=== PATIENT | male | born 1940 | race American Indian/Alaskan Native ===

== ENCOUNTER 2019-08-21 05:51 | Inpatient (IN) | payer MEDICARE ==
[2019-08-21] MEDS ORDERED: SODIUM CHLORIDE 0.9% 1000 ML 1,000 ML ONE (06:45)
[2019-08-21] MEDS ORDERED: SODIUM CHLORIDE 0.9% 1000 ML 1,000 ML IV ONE (06:47)
--- NOTE | 2019-08-21 07:08 | Emergency Department Report ---
HPI - General Chief Complaint: GI Bleed Time Seen by Provider: 08/21/19 06:07 - HPI HPI: 79-year-old -L[place] male presents to the emergency department with complaint of rectal bleeding that started last night around 8:30 PM. He had some spasmodic abdominal discomfort around 3 AM this morning. Currently he denies any abdominal pain, rectal pain, nausea, vomiting. Patient says that he feels warm but denies any known fever. He has not taken anything for her symptoms prior to presentation. This has never happened previously. He has a past medical history of hypertension, coronary artery disease with MO and is on anticoagulation, warfarin. His primary care physician is Dr. Angelica Lyons and his food preparation kitchen aide is Dr Landry. No recent travel or sick contacts at home. He is not a tobacco smoker. ED Past Medical Hx - Past Medical History Previous Medical History?: Yes Hx Hypertension: Yes Hx Heart Attack/AMI: Yes (2007) Hx Congestive Heart Failure: No Hx Diabetes: No Hx Deep Vein Thrombosis: No Hx Pulmonary Embolism: No Hx Liver Disease: No Hx Renal Disease: No Hx Sickle Cell Disease: No Hx Arthritis: No Hx Headaches / Migraines: No Hx Seizures: No Hx Kidney Stones: No Hx Asthma: No Hx COPD: No Hx Tuberculosis: No Hx Dementia: No Hx HIV: No Additional medical history: prostate CA - Surgical History Past Surgical History?: Yes Hx Coronary Stent: Yes (stents x3 in 2007) Hx Open Heart Surgery: No Hx Pacemaker: No Hx Internal Defibrillator: No Hx Cholecystectomy: No Hx Appendectomy: No Hx Breast Surgery: No Additional Surgical History: stentx3, prostate surgery - Social History Smoking Status: Never Smoker Substance Use Type: None - Medications Home Medications: Home Medications Medication Instructions Recorded Confirmed Last Taken Type Warfarin [Coumadin] 5 mg PO QDAY 05/09/17 08/21/19 08/19/19 History Warfarin [Coumadin] 10 mg PO QDAY 05/09/17 08/21/19 08/20/19 History Aspirin 81 mg PO DAILY #30 tab.chew 05/11/17 08/21/19 08/20/19 Rx AtorvaSTATin [Lipitor] 80 mg PO QHS #30 tablet 05/11/17 08/21/19 08/20/19 Rx Clopidogrel [Plavix] 75 mg PO QDAY #30 tablet 05/11/17 08/21/19 08/20/19 Rx Famotidine [Pepcid] 20 mg PO QDAY #30 tablet 05/11/17 08/21/19 08/13/19 Rx Lisinopril/Hydrochlorothiazide 1 each PO QDAY 08/21/19 08/21/19 08/20/19 History [Zestoretic 10-12.5 mg Tablet] Metoprolol [Lopressor] 25 mg PO QDAY 08/21/19 08/21/19 08/20/19 History ED Review of Systems ROS: Stated complaint: NAUSEA Other details as noted in HPI Comment: All other systems reviewed and negative Constitutional: denies: chills, fever Eyes: denies: eye pain, vision change ENT: denies: ear pain, throat pain Respiratory: denies: cough, shortness of breath Cardiovascular: denies: chest pain, palpitations Gastrointestinal: abdominal pain, other (rectal bleeding). denies: vomiting, melena Genitourinary: denies: dysuria, discharge Musculoskeletal: denies: back pain, arthralgia Skin: denies: rash, lesions Neurological: denies: headache, numbness Physical Exam - Physical Exam Vital Signs: Vital Signs 08/21/19 06:14 Temperature 98.5 F Pulse Rate 66 Respiratory 21 Rate Blood Pressure 127/64 Blood Pressure 127/64 [Left] O2 Sat by Pulse 100 Oximetry Physical Exam: GENERAL: The patient is well-developed well-nourished. HENT: Normocephalic. Atraumatic. Patient has moist mucous membranes. EYES: Extraocular motions are intact. NECK: Supple. Trachea is midline. CHEST/LUNGS: Clear to auscultation. There is no respiratory distress noted. HEART/CARDIOVASCULAR: Regular. There is no tachycardia. There is no murmur. ABDOMEN: Abdomen is soft, nontender. Patient has normal bowel sounds. There is no abdominal distention. SKIN: Skin is warm and dry. NEURO: The patient is awake, alert, and oriented. The patient is cooperative. The patient has no focal neurologic deficits. Normal speech. MUSCULOSKELETAL: There is no tenderness or deformity. There is no limitation range of motion. There is no evidence of acute injury. RECTAL: A small amount of gross red blood was seen. No obvious hemorrhoids or lesions. ED Course Vital Signs 08/21/19 06:14 Temperature 98.5 F Pulse Rate 66 Respiratory 21 Rate Blood Pressure 127/64 Blood Pressure 127/64 [Left] O2 Sat by Pulse 100 Oximetry - Consultations Consultation #1: I spoke with the PA for [facility], Deborah, regarding the patient's GI bleeding while on Coumadin. They came and saw the patient in the emergency department and plan to do a colonoscopy tomorrow and prep him today. 08/21/19 12:32 ED Medical Decision Making - Lab Data Result diagrams: 08/21/19 07:04 08/21/19 07:04 - EKG Data -: EKG Interpreted by Me EKG shows normal: sinus rhythm, axis, intervals (prolonged PA interval), QRS complexes (q waves to inferior leads), ST-T waves Rate: normal - EKG Data Interpretation: other (sinus, prolonged PA interval, inferior q waves) - Medical Decision Making Patient presents with new onset GI bleed since last night while on Coumadin a nticoagulation. Patient had some transient episodes of feeling hot, dizzy and some borderline hypotension but he responded to IV fluid resuscitation. Hemoglobin was at about 11.5. The INR is at 2.8 and therapeutic. Rest of labs are mostly unremarkable. Patient seen by GI and they have been consult at and will most likely do a colonoscopy tomorrow. Patient accepted for admission by the hospitalist, Dr. Marc. - Differential Diagnosis hemorrhoids, diverticulosis, malignancy Critical Care Time: No Critical care attestation.: If time is entered above; I have spent that time in minutes in the direct care of this critically ill patient, excluding procedure time. ED Disposition Clinical Impression: Chronic anticoagulation GI bleed Qualifiers: GI bleed type/associated pathology: unspecified gastrointestinal hemorrhage t ype Qualified Code(s): K92.2 - Gastrointestinal hemorrhage, unspecified Disposition: OP ADMIT IP TO THIS HOSP Is pt being admited?: Yes Condition: Fair Time of Disposition: 12:33
[2019-08-21 07:48] LABS: Alanine Aminotransferase 17 units/L (7-56); Albumin 3.6 g/dL (3.9-5); BUN/Creatinine Ratio 30; Blood Urea Nitrogen 33 mg/dL (9-20); Calcium 8.2 mg/dL (8.4-10.2); Hemolysis Index 21
[2019-08-21 07:49] LABS: Basophils % (Auto) 0.4 % (0.0-1.8); Eosinophils % (Auto) 0.3 % (0.0-4.3); Hematocrit 36.2 % (35.5-45.6); Hemoglobin 11.4 gm/dl (11.8-15.2); Lymphocytes # (Auto) 0.8 K/mm3 (1.2-5.4); Lymphocytes % (Auto) 10.1 % (13.4-35.0); Mean Corpuscular HGB Conc 31 % (32-34); Mean Corpuscular Volume 78 fl (84-94); Monocytes # (Auto) 0.3 K/mm3 (0.0-0.8); Monocytes % (Auto) 4.1 % (0.0-7.3); Platelet Count 152 K/mm3 (140-440); Red Blood Count 4.67 M/mm3 (3.65-5.03); Red Cell Distribution Width 16.5 % (13.2-15.2)
[2019-08-21 08:00] LABS: INR 2.8 (0.87-1.13)
[2019-08-21 08:01] LABS: Partial Thromboplastin Time 31.4 Sec. (24.2-36.6)
--- NOTE | 2019-08-21 12:38 | Gastroenterology Consultation ---
<ALDO HWANG - Last Filed: 08/21/19 12:40> History of Present Illness - Reason for Consult Consult date: 08/21/19 GI bleed Requesting physician: ALEJANDRO CHEATHAM - History of Present Illness Patient is a 79 y/o male with PMH of HTN, CAD (s/p coronary stents), and prostate CA (s/p surgery) who presented to ED with c/o rectal bleeding to which GI has been consulted. This afternoon patient was resting on stretcher in ED w/o acute distress. He reports an acute onset of rectal bleeding with bright red blood overnight that has continued this am. Last episode a couple of hours ago with bleeding now improving. Admits to mild abd cramping but no significant abd pain. Denies fever, CP, SOB, N/v, hematemesis, melena, diarrhea, or constipation. No prior hx of GI bleeding, PUD, or liver disease. Last colonoscopy over 10yrs ago. No Fhx of GI cancers. Currently on Coumadin at home (last dose yesterday). Past History Past Medical History: CAD, hypertension, other (prostate CA) Past Surgical History: Other (coronary stents; prostate surgery) Social history: denies: smoking, alcohol abuse Medications and Allergies Allergies Allergy/AdvReac Type Severity Reaction Status Date / Time No Known Allergies Allergy Verified 05/09/17 04:07 Home Medications Medication Instructions Recorded Confirmed Last Taken Type Warfarin [Coumadin] 5 mg PO QDAY 05/09/17 08/21/19 08/19/19 History Warfarin [Coumadin] 10 mg PO QDAY 05/09/17 08/21/19 08/20/19 History Aspirin 81 mg PO DAILY #30 tab.chew 05/11/17 08/21/19 08/20/19 Rx AtorvaSTATin [Lipitor] 80 mg PO QHS #30 tablet 05/11/17 08/21/19 08/20/19 Rx Famotidine [Pepcid] 20 mg PO QDAY #30 tablet 05/11/17 08/21/19 08/13/19 Rx Lisinopril/Hydrochlorothiazide 1 each PO QDAY 08/21/19 08/21/19 08/20/19 History [Zestoretic 10-12.5 mg Tablet] Metoprolol [Lopressor] 25 mg PO QDAY 0908/21/19 08/20/19 History Active Meds: medications reviewed/updated as required Review of Systems - Review of Systems All systems: negative Gastrointestinal: BRBPR Exam - Constitutional Vital Signs: Temp Pulse Resp BP Pulse Ox 98.5 F 63 12 130/60 99 08/21/19 06:14 08/21/19 10:00 08/21/19 10:00 08/21/19 10:00 08/21/19 10:00 General appearance: no acute distress - EENT Eyes: PERRL, EOM intact ENT: hearing intact - Respiratory Respiratory: bilateral: CTA - Cardiovascular Rhythm: regular - Gastrointestinal General gastrointestinal: Present: soft, non-tender, non-distended, normal bowel sounds - Neurologic Neurological: alert and oriented x3 - Labs CBC & Chem 7: 08/21/19 07:04 08/21/19 07:04 Lab Results: Laboratory Results - last 24 hr 08/21/19 08/21/19 08/21/19 07:03 07:03 07:03 WBC RBC Hgb Hct MCV MCH MCHC RDW Plt Count Lymph % (Auto) [place] % (Auto) Eos % (Auto) Baso % (Auto) Lymph # [place] # Eos # Baso # Seg Neutrophils % Seg Neutrophils # PT 29.0 H INR 2.80 H APTT 31.4 Sodium Potassium Chloride Carbon Dioxide Anion Gap BUN Creatinine Estimated GFR BUN/Creatinine Ratio Glucose Calcium Total Bilirubin AST ALT Alkaline Phosphatase Troponin T Total Protein Albumin Albumin/Globulin Ratio TSH 4.280 H Blood Type A POSITIVE Antibody Screen Negative 08/21/19 08/21/19 08/21/19 07:04 07:04 08:33 WBC 8.1 RBC 4.67 Hgb 11.4 L Hct 36.2 MCV 78 L MCH 24 L MCHC 31 L RDW 16.5 H Plt Count 152 Lymph % (Auto) 10.1 L [place] % (Auto) 4.1 Eos % (Auto) 0.3 Baso % (Auto) 0.4 Lymph # 0.8 L [place] # 0.3 Eos # 0.0 Baso # 0.0 Seg Neutrophils % 85.1 H Seg Neutrophils # 6.9 PT INR APTT Sodium 140 Potassium 4.2 Chloride 106.8 Carbon Dioxide 23 Anion Gap 14 BUN 33 H Creatinine 1.1 Estimated GFR > 60 BUN/Creatinine Ratio 30 Glucose 140 H Calcium 8.2 L Total Bilirubin 0.40 AST 20 ALT 17 Alkaline Phosphatase 49 Troponin T < 0.010 Total Protein 6.9 Albumin 3.6 L Albumin/Globulin Ratio 1.1 TSH Blood Type Antibody Screen Assessment and Plan 1.GI bleed 2.hematochezia 3.H/o prostate CA (s/p surgery) -WBC, plt, and LFTs WNL -BUN 33 -INR 2.80 -H/H 11.4/36.2 -continue to monitor H/H and transfuse as needed -patient reports acute onset of rectal bleeding with bright red blood overnight that has continue this am. Last episode a couple of hours ago per pt with bleeding now improving. -currently HD stable -last colonoscopy over 10yrs ago -etiology-possibly diverticular vs other -will schedule for colonoscopy +/-EGD tomorrow for further evaluation -okay for clears today then NPO after MN -continue to hold blood thinning medication (last dose of coumadin yesterday) -repeat INR in am -continue PPI and supportive care -for gross bleeding, recommend stat bleeding scan -will follow <DMITRIY MARTINEZ - Last Filed: 08/21/19 23:12> Medications and Allergies Active Meds: Active Medications Pantoprazole Sodium (Protonix) 40 mg IV BID JAKE Last Admin: 08/21/19 23:06 Dose: 40 mg Documented by: Polyethylene Glycol/Electrolytes (Golytely) 4,000 ml PO ONCE JAKE Stop: 08/22/19 07:00 Last Admin: 08/21/19 16:01 Dose: 4,000 ml Documented by: Exam - Constitutional Vital Signs: Temp Pulse Resp BP Pulse Ox 98.1 F 60 18 123/67 97 08/21/19 16:22 08/21/19 16:22 08/21/19 16:22 08/21/19 16:22 08/21/19 16:22 - Labs CBC & Chem 7: 08/21/19 07:04 08/21/19 07:04 Lab Results: Laboratory Results - last 24 hr 08/21/19 08/21/19 08/21/19 07:03 07:03 07:03 WBC RBC Hgb Hct MCV MCH MCHC RDW Plt Count Lymph % (Auto) [place] % (Auto) Eos % (Auto) Baso % (Auto) Lymph # [place] # Eos # Baso # Seg Neutrophils % Seg Neutrophils # PT 29.0 H INR 2.80 H APTT 31.4 Sodium Potassium Chloride Carbon Dioxide Anion Gap BUN Creatinine Estimated GFR BUN/Creatinine Ratio Glucose Calcium Total Bilirubin AST ALT Alkaline Phosphatase Troponin T Total Protein Albumin Albumin/Globulin Ratio TSH 4.280 H Blood Type A POSITIVE Antibody Screen Negative 08/21/19 08/21/19 08/21/19 07:04 07:04 08:33 WBC 8.1 RBC 4.67 Hgb 11.4 L Hct 36.2 MCV 78 L MCH 24 L MCHC 31 L RDW 16.5 H Plt Count 152 Lymph % (Auto) 10.1 L [place] % (Auto) 4.1 Eos % (Auto) 0.3 Baso % (Auto) 0.4 Lymph # 0.8 L [place] # 0.3 Eos # 0.0 Baso # 0.0 Seg Neutrophils % 85.1 H Seg Neutrophils # 6.9 PT INR APTT Sodium 140 Potassium 4.2 Chloride 106.8 Carbon Dioxide 23 Anion Gap 14 BUN 33 H Creatinine 1.1 Estimated GFR > 60 BUN/Creatinine Ratio 30 Glucose 140 H Calcium 8.2 L Total Bilirubin 0.40 AST 20 ALT 17 Alkaline Phosphatase 49 Troponin T < 0.010 Total Protein 6.9 Albumin 3.6 L Albumin/Globulin Ratio 1.1 TSH Blood Type Antibody Screen Assessment and Plan Patient seen and examined. I have reviewed the advanced practitioner's evaluation, assessment, and plan, and agree with them. I note the following additions: highest on Ddx diverticular bleed, vs mass, polyp, AVM, etc Will tentatively plan on colon tomorrow, though will need to monitor INR - Patient Problems (1) GI bleed Current Visit: Yes Status: Acute Qualifiers: GI bleed type/associated pathology: unspecified gastrointestinal hemorrhage type Qualified Code(s): K92.2 - Gastrointestinal hemorrhage, unspecified
[2019-08-21] MEDS ORDERED: POLYETHYLENE GLYCOL/ELECT SOLN 4000 ML PO ONE (12:41)
[2019-08-21] MEDS ORDERED: POLYETHYLENE GLYCOL/ELECT SOLN 4000 ML PO SCH (16:00)
[2019-08-21] MEDS: PANTOPRAZOLE 40 MG INJ IV SCH (23:06)
--- NOTE | 2019-08-21 23:39 | Event Note ---
Date: 08/21/19 See history and physical in the reports Lower GI bleed
[2019-08-21] MEDS ORDERED: ONDANSETRON 4 MG/2 ML INJ IV PRN (23:42)
[2019-08-21] MEDS ORDERED: ACETAMINOPHEN 325 MG TAB PO PRN (23:42)
[2019-08-21] MEDS ORDERED: SODIUM CHLORIDE 0.9% 1000 ML 1,000 ML IV SCH (23:45)
--- NOTE | 2019-08-22 00:13 | History and Physical Report ---
CHIEF COMPLAINT: Lower GI bleed since 8:30 p.m. last night. HISTORY OF PRESENT ILLNESS: A 79-year-old -[place]ish male who presents to the Emergency Room with rectal bleeding from 8:30 p.m. last night. Had multiple bouts of pure red blood per rectum. Denies any rectal pain. No nausea, no vomiting. This is the first episode of lower gastrointestinal bleed per his primary care physician. No syncope, no lightheadedness. PAST MEDICAL HISTORY: As mentioned, hypertension, coronary artery disease in the past. Prostate cancer. PAST SURGICAL HISTORY: Coronary stent x 2. SOCIAL HISTORY: Does not smoke. FAMILY HISTORY: Hypertension. CURRENT MEDICATIONS: On the chart. REVIEW OF SYSTEMS: Significant for lower GI bleed, since last night. Otherwise, review of systems negative. No syncope, no seizures. No lightheadedness. A 14-point review of systems done. PHYSICAL EXAMINATION: GENERAL: Elderly male, cooperative during examination. VITAL SIGNS: Blood pressure is 121/60, temperature 97, pulse is 68 and respirations are 15. HEENT: Unremarkable. Pupils are equal and reactive. NECK: Supple, no lymphadenopathy, no thyromegaly. LUNGS: Clear to auscultation and percussion. Good air entry. CARDIOVASCULAR: S1, S2 heard. No gallop, no murmur, no rub. Apical impulse in left fifth intercostal space and midclavicular line. ABDOMEN: Soft and benign. No hepatosplenomegaly, no guarding, no rigidity. RECTAL: Pure rectal blood in the glove. CENTRAL NERVOUS SYSTEM: Alert and oriented x 4, nonfocal exam. SKIN: Normal. LABORATORY DATA: Significant for white count of 8100, H and H 11.4 and 36.8, MCV, MCH and MCHC are low. INR is 2.8. Electrolytes are normal. Calcium is 8.2, slightly low. Glucose is 140. TSH is 4.28. DIAGNOSTIC DATA: EKG shows heart rate of 54 per minute, sinus bradycardia. ASSESSMENT AND PLAN: 1. Lower gastrointestinal bleed. The patient needs to get a colonoscopy. GI consult requested. Monitor hemoglobin and hematocrit q. 8 hours and transfuse if necessary. The patient is not orthostatic or not hypotensive at this point. 2. Hyperlipidemia. We will hold atorvastatin. 3. Gastroesophageal reflux disease: We will hold the famotidine and give Protonix IV 40 mg every 12 hours. 4. Hypertension. We will hold the lisinopril and metoprolol and start him on Catapres patch q. weekly. 5. Anticoagulation. We will hold warfarin. 6. Deep venous thrombosis prophylaxis, on sequential compression devices. JOB# [id number] VSM/NTS MTDD
[2019-08-22 01:24] LABS: Hemoglobin 11.4 gm/dl (11.8-15.2)
[2019-08-22 05:18] LABS: Hematocrit 31.9 % (35.5-45.6); Hemoglobin 10.2 gm/dl (11.8-15.2)
[2019-08-22 05:30] LABS: INR 2.32 (0.87-1.13)
--- NOTE | 2019-08-22 08:37 | Anesthesia Consultation ---
Anesthesia Consult and Med Hx Date of service: 08/22/19 - Airway Anesthetic Teeth Evaluation: Good ROM Head & Neck: Adequate Mental/Hyoid Distance: Adequate Mallampati Class: Class II Intubation Access Assessment: Good - Pre-Operative Health Status ASA Pre-Surgery Classification: ASA3 Proposed Anesthetic Plan: MAC - Pulmonary Hx Smoking: No Hx Asthma: No COPD: No Hx Pneumonia: No Hx Sleep Apnea: Yes - Cardiovascular System Hx Hypertension: Yes Hx Coronary Artery Disease: Yes Hx Heart Attack/AMI: Yes Hx Angina: Yes Hx Percutaneous Transluminal Coronary Angioplasty (PTCA): Yes Hx Cardia Arrhythmia: Yes Hx Pacemaker: No Hx Internal Defibrillator: No Hx Valvular Heart Disease: No Hx Heart Murmur: No Hx Peripheral Vascular Disease: No - Central Nervous System Hx Neuromuscular Disorder: No Hx Seizures: No CVA: No Hx Back Pain: No Hx Psychiatric Problems: No - Gastrointestinal Hx Ulcer: No Hx Gastroesophageal Reflux Disease: No - Endocrine Hx Renal Disease: No Hx End Stage Renal Disease: No Hx Cirrhosis: No Hx Liver Disease: No Hx Insulin Dependent Diabetes: No Hx Non-Insulin Dependent Diabetes: No Hx Thyroid Disease: No Hx Hypothyroidism: No Hx Hyperthyroidism: No - Hematic Hx Anemia: No Hx Sickle Cell Disease: No - Other Systems Hx Alcohol Use: No Hx Substance Use: No Hx Cancer: Yes Hx Obesity: Yes
--- NOTE | 2019-08-22 08:38 | Anesthesia Day of Surgery ---
Anesthesia Day of Surgery - Day of Surgery Patient Examined: Yes Patient H&P Reviewed: Yes Patient is NPO: Yes Beta Blockers: No
[2019-08-22] MEDS ORDERED: PROPOFOL 200 MG/20 ML VIAL IV ONE ×4 (08:43→09:08)
[2019-08-22] MEDS ORDERED: SIMETHICONE 40 MG/0.6 ML ORAL DROP 30ML PO ONE (08:57)
[2019-08-22 09:05] LABS: Hematocrit 33.9 % (35.5-45.6); Hemoglobin 10.8 gm/dl (11.8-15.2)
--- NOTE | 2019-08-22 09:05 | Operative Report ---
Operative Report Operative Report: DOS: 08/22/19 SURGEON: Wilver Heller MD COLONOSCOPY REPORT PREOPERATIVE AND POSTOPERATIVE DIAGNOSIS: GI bleed DESCRIPTION OF PROCEDURE: The colonoscope was passed to the cecum as identified by the ileocecal valve and appendiceal orifice. Scope was carefully withdrawn. Retroflexion was performed in the rectum. At the end of procedure, the scope was cleaned using normal technique. Vital signs monitored continuously throughout. Unable to intubate terminal ileum despite multiple attempts SEDATION: Provided by Anest[facility]iology [facility]. Quality of the prep was fair. COMPLICATIONS: None. ESTIMATED BLOOD LOSS: none FINDINGS: * scattered diverticulosis throughout the entire colon * No blood in the entire colon RECOMMENDATIONS: Bleeding may have been diverticular, proceed with EGD to be thorough given no definitive source
--- NOTE | 2019-08-22 09:24 | Operative Report ---
Operative Report Operative Report: DOS: 08/22/19 SURGEON: Wilver Heller MD EGD REPORT PREOPERATIVE DIAGNOSIS and POSTOPERATIVE DIAGNOSIS: GI Bleed ESTIMATED BLOOD LOSS: none DESCRIPTION OF PROCEDURE: A high-resolution EGD scope was passed through the oropharynx, esophagus, stomach, and second portion of duodenum. The scope was carefully withdrawn. Retroflexion was performed in the stomach. At the end of the procedure, the scope was cleaned using normal technique. Vital signs monitored continuously throughout. SEDATION: Provided by [facility]. COMPLICATIONS: None. FINDINGS: * Normal duodenum * Normal stomach * GE junction at 40cm from the incisors * slightly tortuous distal esophagus * Exam otherwise normal RECOMMENDATIONS: * No source for bleeding on EGD, so most consistent with diverticular bleed * May start diet, monitor Hgb and monitor clinically for another day; if tomorrow morning Hgb stable and no more bleeding may discharge home * We will sign off, please call back if there is any more bleeding * From GI standpoint may continue coumadin given benefits outweigh risks
[2019-08-22] MEDS ORDERED: cloNIDine TTS 0.1 MG/24 HR PATCH TD SCH (10:00)
[2019-08-22] MEDS ORDERED: LIDOCAINE MPF (2%) 20 MG/1 ML VIAL 5 ML ONE (10:00)
[2019-08-22] MEDS ORDERED: WATER FOR IRRIG STERILE 250 ML BOTTLE IR ONE (10:14)
[2019-08-22] MEDS: PANTOPRAZOLE 40 MG INJ IV SCH ×2 (11:31→22:05)
[2019-08-22] MEDS ORDERED: FAMOTIDINE 20 MG TAB PO SCH (13:00)
[2019-08-22] MEDS ORDERED: NON-FORMULARY EACH (Lisinopril/Hydrochlorothiazide [Zestoretic 10-12.5 Mg Tablet] 1 EACH) PO SCH (13:00)
[2019-08-22 16:14] LABS: Hematocrit 32.1 % (35.5-45.6); Hemoglobin 10.1 gm/dl (11.8-15.2)
[2019-08-22] MEDS ORDERED: WARFARIN 5 MG TAB PO SCH (17:00)
[2019-08-22] MEDS: METOPROLOL TARTRATE 25 MG TAB PO SCH (22:25)
[2019-08-22] MEDS: LISINOPRIL 10 MG TAB PO SCH (22:26)
[2019-08-22] MEDS: hydroCHLOROthiazide 12.5 MG CAP PO SCH (22:26)
[2019-08-23 04:57] LABS: INR 1.77 (0.87-1.13)
[2019-08-23] MEDS ORDERED: LOVASTATIN 20 MG PO SCH (10:00)
[2019-08-23] MEDS ORDERED: PRAVASTATIN 20 MG TAB PO SCH (10:00)
[2019-08-23] MEDS ORDERED: PANTOPRAZOLE 40 MG TAB PO SCH (10:00)
[2019-08-23] MEDS: hydroCHLOROthiazide 12.5 MG CAP PO SCH (10:10)
[2019-08-23] MEDS: METOPROLOL TARTRATE 25 MG TAB PO SCH (10:12)
[2019-08-23] MEDS: LISINOPRIL 10 MG TAB PO SCH (10:14)
--- NOTE | 2019-08-23 11:19 | Discharge Summary ---
Providers - Providers Date of Admission: 08/22/19 13:40 Attending physician: ELEONORA REAVES MD 08/21/19 11:46 Consult to Physician [CONS] Routine Comment: Consulting Provider: JUSTIN QUINONEZ Physician Instructions: Reason For Exam: GI Bleed on Coumadin Primary care physician: ADELIA HOLT MD Hospitalization Reason for admission: rectal bleeding Condition: Stable Procedures: EGD and colonoscopy Hospital course: Patient is a 79 y/o male with PMH of HTN, CAD (s/p coronary stents), and prosta te CA (s/p surgery) who presented to ED with c/o rectal bleeding. He reports an acute onset of rectal bleeding with bright red blood overnight that has continued this am. Last episode a couple of hours ago with bleeding now improving. Admits to mild abd cramping but no significant abd pain. Denies fever, CP, SOB, N/v, hematemesis, melena, diarrhea, or constipation. No prior hx of GI bleeding, PUD, or liver disease. Last colonoscopy over 10yrs ago. No Fhx of GI cancers. Currently on Coumadin at home (last dose yesterday). Patient was admitted to the floor, H&H was stable. Vital signs were stable. Patient didn't have any further rectal bleeding after admission. Patient was seen and evaluated by GI and deep EGD and colonoscopy which were unremarkable. GI said the likely source of bleeding from diverticulosis. Patient was hemodynamically stable and discharged home in a stable condition. Patient started back on his Coumadin. I have discussed in detail about the management plan with the patient and his . Disposition: - TO HOME OR SELFCARE Time spent for discharge: 32 minutes - Discharge Diagnoses (1) Chronic anticoagulation Status: Acute (2) GI bleed Status: Acute Qualifiers: GI bleed type/associated pathology: unspecified gastrointestinal hemorrhage type Qualified Code(s): K92.2 - Gastrointestinal hemorrhage, unspecified (3) Chest pain Status: Acute (4) Obesity (BMI 30-39.9) Status: Acute (5) CAD (coronary artery disease) Status: Chronic (6) HTN (hypertension) Status: Chronic (7) Hyperlipidemia Status: Chronic Core Measure Documentation - Palliative Care Palliative Care/ Comfort Measures: Not Applicable - Core Measures Any of the following diagnoses?: none Exam - Physical Exam Narrative exam: Not in cardiopulmonary distress. The patient is obese. Vital signs as documented. Head exam is unremarkable. No scleral icterus . Neck is without jugular venous distension, thyromegaly, or carotid bruits. Lungs are clear to auscultation. Cardiac exam reveals regular rate and Rhythm. First and second heart sounds normal. No murmurs, rubs or gallops. Abdominal exam reveals normal bowel sounds, no masses, no organomegaly and no aortic enlargement. Extremities are nonedematous and both femoral and pedal pulses are normal. LOSS PREVENTION AND SAFETY MANAGER: Alert and oriented 3. No focal weakness. - Constitutional Vitals: Temp Pulse Resp BP Pulse Ox 98.1 F 62 18 129/62 98 08/23/19 06:04 08/23/19 10:14 08/23/19 06:04 08/23/19 10:14 08/23/19 06:04 Plan Activity: no restrictions Weight Bearing Status: Full Weight Bearing Diet: low cholesterol, low salt Follow up with: PRIMARY CAREMD [Referring] - 3-5 Days ADELIA MICHEL MD [Staff Physician] - 14 Days (Follow with Dr Michel id no established PCP.) Forms: Accompanied Note, Warfarin Discharge Instruction
[2019-08-23 12:48] VITALS: BP 135/66
== END 2019-08-23 12:30 | disposition home or self-care (01) | DRG 378 ==
LOC: ED 05:51 → 3A 11:39 → OBSVTOIN 08-22 13:40
PROVIDERS: ADMIT Internal Medicine; ATTEND Internal Medicine
PROC: 0DJD8ZZ Inspection of Lower Intestinal Tract, Via Natural or Artificial Opening Endoscopic (ICD-10-PCS; principal; 2019-08-22)
PROC: 0DJ08ZZ Inspection of Upper Intestinal Tract, Via Natural or Artificial Opening Endoscopic (ICD-10-PCS; 2019-08-22)
DX: K57.31 Diverticulosis of large intestine without perforation or abscess with bleeding (principal); D62 Acute posthemorrhagic anemia; D68.69 Other thrombophilia; I10 Essential (primary) hypertension; E66.9 Obesity, unspecified; E78.5 Hyperlipidemia, unspecified; I25.10 Atherosclerotic heart disease of native coronary artery without angina pectoris; Z79.01 Long term (current) use of anticoagulants; I25.2 Old myocardial infarction; Z95.5 Presence of coronary angioplasty implant and graft; Z79.82 Long term (current) use of aspirin; Z68.34 Body mass index [BMI] 34.0-34.9, adult
CPT/HCPCS: 36415; 80053; 84443; 84484; 85014; 85018; 85025; 85610; 85730; 86850; 86900; 86901; 93005; 93010; 96374; 96375; G0378; A9270-GY; C9113; J2405; J2704; J7030

== ENCOUNTER 2019-08-24 00:58 | Inpatient (IN) | payer MEDICARE ==
[2019-08-24] MEDS ORDERED: SODIUM CHLORIDE 0.9% 1000 ML 1,000 ML ONE (01:08)
[2019-08-24] MEDS ORDERED: SODIUM CHLORIDE 0.9% 1000 ML 1,000 ML IV ONE (01:10)
[2019-08-24] MEDS ORDERED: ONDANSETRON 4 MG/2 ML INJ IV ONE (01:11)
[2019-08-24] MEDS ORDERED: ASPIRIN 325 MG TAB PO ONE (01:11)
[2019-08-24] MEDS ORDERED: fentaNYL 100 MCG/2 ML INJ IV ONE ×2 (01:11→02:30)
--- NOTE | 2019-08-24 01:16 | Emergency Department Report ---
HPI - General Chief Complaint: Chest Pain Time Seen by Provider: 08/24/19 01:07 - HPI HPI: Room 2 The patient is a 79-year-old male presenting with a chief complaint of chest pain. Patient states proximal for 45 minutes ago he developed substernal chest pain described as pressure and burning in nature. Patient states the pain radiates to his left upper extremity. Patient missed numbness in the left upper extremity. Patient denies shortness of breath or nausea/vomiting. The patient states he's had 3 cardiac stents placed most recent of which was in 2017 Location: [See above] Duration: [See above] Quality: [See above] Severity: [See above] Timing: [See above] Context: [See above] Modifying factors: [See above] Associated signs and symptoms: [see above] ED Past Medical Hx - Past Medical History Previous Medical History?: Yes Hx Hypertension: Yes Hx Heart Attack/AMI: Yes Additional medical history: prostate CA - Surgical History Past Surgical History?: Yes Hx Coronary Stent: Yes (X3) Additional Surgical History: stentx3, prostate surgery - Family History Family history: no significant - Social History Smoking Status: Never Smoker Substance Use Type: None - Medications Home Medications: Home Medications Medication Instructions Recorded Confirmed Last Taken Type Warfarin [Coumadin] 5 mg PO QDAY 05/09/17 08/21/19 08/19/19 History Warfarin [Coumadin] 10 mg PO QDAY 05/09/17 08/21/19 08/20/19 History Aspirin 81 mg PO DAILY #30 tab.chew 05/11/17 08/21/19 08/20/19 Rx Famotidine [Pepcid] 20 mg PO QDAY #30 tablet 05/11/17 08/21/19 08/13/19 Rx Lisinopril/Hydrochlorothiazide 1 each PO QDAY 08/21/19 08/21/19 08/20/19 History [Zestoretic 10-12.5 mg Tablet] Metoprolol [Lopressor TAB] 25 mg PO QDAY 08/21/19 08/21/19 08/20/19 History Lovastatin (Nf) [Mevacor (Nf)] 20 mg PO DAILY 08/22/19 08/22/19 08/20/19 History 20mg ED Review of Systems ROS: Stated complaint: POSS STEMI Other details as noted in HPI Constitutional: denies: diaphoresis Eyes: denies: eye pain ENT: denies: throat pain Respiratory: denies: shortness of breath Cardiovascular: chest pain Endocrine: no symptoms reported Gastrointestinal: denies: nausea, vomiting Genitourinary: denies: dysuria Musculoskeletal: denies: back pain Neurological: paresthesias Physical Exam - Physical Exam Vital Signs: Vital Signs 08/24/19 01:06 Temperature 98.2 F Pulse Rate 70 Respiratory 17 Rate Blood Pressure 93/59 Blood Pressure 93/59 [Left] O2 Sat by Pulse 99 Oximetry Physical Exam: GENERAL: The patient is well-developed well-nourished male lying on stretcher appearing to be in moderate discomfort. [] HEENT: Normocephalic. Atraumatic. Extraocular motions are intact. Patient has moist mucous membranes. NECK: Supple. Trachea midline CHEST/LUNGS: Clear to auscultation. There is no respiratory distress noted. HEART/CARDIOVASCULAR: Regular. There is no tachycardia. There is no gallop rub or murmur. ABDOMEN: Abdomen is soft, nontender. Patient has normal bowel sounds. There is no abdominal distention. SKIN: There is no rash. There is no diaphoresis. NEURO: The patient is awake, alert, and oriented. The patient is cooperative. The patient has normal speech MUSCULOSKELETAL: There is no evidence of acute injury. ED Course Vital Signs 08/24/19 01:06 Temperature 98.2 F Pulse Rate 70 Respiratory 17 Rate Blood Pressure 93/59 Blood Pressure 93/59 [Left] O2 Sat by Pulse 99 Oximetry - Reevaluation(s) Reevaluation #1: 08/24/19 00:48 EMS EKG sent to Dr. Betts. Case discussed. Requests repeat EKG upon patient's arrival be sent him 08/24/19 01:07 ED EKG sent to Dr Betts. States no STEMI present and to cancel code STEMI ED Medical Decision Making - Lab Data Result diagrams: 08/24/19 01:11 08/24/19 01:11 Laboratory Tests 08/24/19 08/24/19 08/24/19 01:11 01:11 01:11 WBC 9.1 RBC 4.34 Hgb 10.6 L Hct 33.6 L MCV 77 L MCH 25 L MCHC 32 RDW 16.4 H Plt Count 160 Lymph % (Auto) 40.7 H [place] % (Auto) 4.3 Eos % (Auto) 0.9 Baso % (Auto) 0.5 Lymph # 3.7 [place] # 0.4 Eos # 0.1 Baso # 0.0 Seg Neutrophils % 53.6 Seg Neutrophils # 4.9 PT 16.7 H INR 1.39 H APTT 22.4 L Sodium 137 Potassium 4.0 Chloride 102.3 Carbon Dioxide 23 Anion Gap 16 BUN 15 Creatinine 0.9 Estimated GFR > 60 BUN/Creatinine Ratio 17 Glucose 148 H Calcium 8.2 L Total Creatine Kinase 358 H CK-MB (CK-2) 3.7 CK-MB (CK-2) Rel Index 1.0 Troponin T < 0.010 NT-Pro-B Natriuret Pep 158.4 - EKG Data -: EKG Interpreted by Me EKG shows normal: sinus rhythm Rate: normal - EKG Data When compared to previous EKG there are: changes noted Interpretation: nonspecific ST-T wave roberth (ST depressions in leads V2, V3, V4, V5, V6 when compared to last EKG) - Radiology Data Radiology results: image reviewed (chest x-ray) interpreted by me: Chest [id number] lower lobe haziness. No pneumothorax - Differential Diagnosis ACS, pericarditis, GERD Critical care attestation.: If time is entered above; I have spent that time in minutes in the direct care of this critically ill patient, excluding procedure time. ED Disposition Clinical Impression: Chest pain Disposition: OP ADMIT IP TO THIS HOSP Is pt being admited?: Yes Does the pt Need Aspirin: Yes Condition: Stable Instructions: Chest Pain (ED) Time of Disposition: 02:16 (hospitalist paged (Dr Marshall))
[2019-08-24 01:22] LABS: Basophils % (Auto) 0.5 % (0.0-1.8); Eosinophils # (Auto) 0.1 K/mm3 (0.0-0.4); Eosinophils % (Auto) 0.9 % (0.0-4.3); Hematocrit 33.6 % (35.5-45.6); Hemoglobin 10.6 gm/dl (11.8-15.2); Lymphocytes # (Auto) 3.7 K/mm3 (1.2-5.4); Lymphocytes % (Auto) 40.7 % (13.4-35.0); Mean Corpuscular HGB Conc 32 % (32-34); Mean Corpuscular Volume 77 fl (84-94); Monocytes # (Auto) 0.4 K/mm3 (0.0-0.8); Monocytes % (Auto) 4.3 % (0.0-7.3); Platelet Count 160 K/mm3 (140-440); Red Blood Count 4.34 M/mm3 (3.65-5.03); Red Cell Distribution Width 16.4 % (13.2-15.2)
[2019-08-24 01:33] LABS: INR 1.39 (0.87-1.13)
[2019-08-24 01:34] LABS: Partial Thromboplastin Time 22.4 Sec. (24.2-36.6)
[2019-08-24 01:39] LABS: Creatine Kinase MB 3.7 ng/mL (0.0-4.0)
[2019-08-24 01:41] LABS: BUN/Creatinine Ratio 17; Blood Urea Nitrogen 15 mg/dL (9-20); Calcium 8.2 mg/dL (8.4-10.2); Hemolysis Index 10
--- NOTE | 2019-08-24 02:28 | XRay Report ---
CHEST 1 VIEW 08/24/2019 2:01 AM INDICATION / CLINICAL INFORMATION: chest pain. COMPARISON: 05/10/17 FINDINGS: SUPPORT DEVICES: None. HEART / MEDIASTINUM: Heart is upper normal size and stable. LUNGS / PLEURA: Mild to moderate bibasilar and perihilar interstitial edema. No pneumothorax. ADDITIONAL FINDINGS: No significant additional findings. IMPRESSION: 1. [id number] pulmonary edema. Signer Name: Aimee Comer MD Signed: 08/24/2019 2:23 AM Workstation Name: [id number]
[2019-08-24] MEDS ORDERED: DOPamine/D5W 800 MG/250 ML 800 MG/250 ML BAG IV ONE (03:11)
[2019-08-24] MEDS ORDERED: ACETAMINOPHEN 325 MG TAB PO PRN (03:12)
[2019-08-24] MEDS ORDERED: oxyCODONE /ACETAMINOPHEN 5-325MG TAB PO PRN (03:12)
--- NOTE | 2019-08-24 03:37 | History and Physical Report ---
History of Present Illness Date of examination: 08/24/19 Chief complaint: Chest pain History of present illness: Patient is a 79-year-old -[place] male with history of CAD status post c ardiac stents 3 who presented to the ED on account of few hours history of midsternal chest pain. He described it as heaviness in character, rated 10 over 10, non-radiating and constant duration. No known aggravating or relieving factors. He has associated hand numbness, diaphoresis and lightheadedness. He denies shortness of breath, palpitation, cough, fever, chills, headaches, nausea, vomiting, syncope or loss of consciousness. Patient's last stress test was more than a year ago. In the ED, code STEMI was called due to abnormal EKG done by EMS. However, repeat EKG done in own ED was negative for STEMI but had some changes when compared to his prior EKG. Past History Past Medical History: CAD, hypertension, hyperlipidemia, other (GI bleed, p rostate cancer) Past Surgical History: Other (cardiac stents 3, prostatectomy) Social history: no significant social history (patient denies tobacco, alcohol or illicit drug use) Family history: CAD (brother in his 60s) Medications and Allergies Allergies Allergy/AdvReac Type Severity Reaction Status Date / Time No Known Allergies Allergy Verified 05/09/17 04:07 Home Medications Medication Instructions Recorded Confirmed Last Taken Type Warfarin [Coumadin] 5 mg PO QDAY 05/09/17 08/24/19 08/19/19 History Warfarin [Coumadin] 10 mg PO QDAY 05/09/17 08/24/19 08/20/19 History Aspirin 81 mg PO DAILY #30 tab.chew 05/11/17 08/24/19 08/20/19 Rx Famotidine [Pepcid] 20 mg PO QDAY #30 tablet 05/11/17 08/24/19 08/13/19 Rx Lisinopril/Hydrochlorothiazide 1 each PO QDAY 08/21/19 08/24/19 08/20/19 History [Zestoretic 10-12.5 mg Tablet] Metoprolol [Lopressor TAB] 25 mg PO QDAY 08/21/19 08/24/19 08/20/19 History Lovastatin (Nf) [Mevacor (Nf)] 20 mg PO DAILY 08/22/19 08/24/19 08/20/19 History 20mg Active Meds: Active Medications Acetaminophen (Tylenol) 650 mg PO Q4H PRN PRN Reason: Pain MILD(1-3)/Fever >100.5/JAMIL Docusate Sodium (Colace) 100 mg PO BID [facility] Famotidine (Pepcid) 10 mg PO BID [facility] Furosemide (Lasix) 40 mg IV DAILY [facility] Heparin Sodium (Porcine) (Heparin) 5,000 unit SUB-Q Q12HR JAKE Dopamine HCl/Dextrose (Intropin Drip 800 Mg/D5w 250 Ml) 800 mg in 250 mls @ 4.519 mls/hr IV TITR ONE; Protocol Stop: 08/26/19 10:30 Nitroglycerin/Dextrose (Tridil Drip 50mg/250ml) 50 mg in 250 mls @ 3 mls/hr IV TITR JAKE; Protocol Morphine Sulfate (Morphine) 2 mg IV Q4H PRN PRN Reason: Pain , Severe (7-10) Ondansetron HCl (Zofran) 4 mg IV Q8H PRN PRN Reason: Nausea And Vomiting Oxycodone/Acetaminophen (Percocet 5/325) 1 tab PO Q6H PRN PRN Reason: Pain, Moderate (4-6) Sodium Chloride (Sodium Chloride Flush Syringe 10 Ml) 10 ml IV BID JAKE Sodium Chloride (Sodium Chloride Flush Syringe 10 Ml) 10 ml IV PRN PRN PRN Reason: LINE FLUSH Review of Systems All systems: negative (all other systems reviewed with the patient and are neg ative unless otherwise stated above) Exam - Constitutional Vitals: Temp Pulse Resp BP Pulse Ox 98.2 F 68 16 86/53 99 08/24/19 01:06 08/24/19 02:45 08/24/19 02:45 08/24/19 02:45 08/24/19 02:45 General appearance: Present: obese, other (in acute painful distress) - EENT Eyes: Present: PERRL, EOM intact ENT: hearing intact, clear oral mucosa - Neck Neck: Present: supple, normal ROM - Respiratory Respiratory effort: normal Respiratory: bilateral: CTA - Cardiovascular Rhythm: regular Heart Sounds: Present: S1 & S2 - Extremities Extremities: pulses symmetrical, No edema Peripheral Pulses: within normal limits - Abdominal General gastrointestinal: Present: soft, non-tender, non-distended, normal bowel sounds Male genitourinary: Present: deferred - Rectal Rectal Exam: deferred - Integumentary Integumentary: Present: clear, warm, dry - Musculoskeletal Musculoskeletal: gait normal, strength equal bilaterally - Psychiatric Psychiatric: appropriate mood/affect, intact judgment & insight - Neurologic Neurologic: CNII-XII intact, moves all extremities Results - Labs CBC & Chem 7: 08/24/19 01:11 08/24/19 01:11 Labs: Laboratory Last Values WBC 9.1 K/mm3 (4.5-11.0) 08/24/19 01:11 RBC 4.34 M/mm3 (3.65-5.03) 08/24/19 01:11 Hgb 10.6 gm/dl (11.8-15.2) L 08/24/19 01:11 Hct 33.6 % (35.5-45.6) L 08/24/19 01:11 MCV 77 fl (84-94) L 08/24/19 01:11 MCH 25 pg (28-32) L 08/24/19 01:11 MCHC 32 % (32-34) 08/24/19 01:11 RDW 16.4 % (13.2-15.2) H 08/24/19 01:11 Plt Count 160 K/mm3 (140-440) 08/24/19 01:11 Lymph % (Auto) 40.7 % (13.4-35.0) H 08/24/19 01:11 [place] % (Auto) 4.3 % (0.0-7.3) 08/24/19 01:11 Eos % (Auto) 0.9 % (0.0-4.3) 08/24/19 01:11 Baso % (Auto) 0.5 % (0.0-1.8) 08/24/19 01:11 Lymph # 3.7 K/mm3 (1.2-5.4) 08/24/19 01:11 [place] # 0.4 K/mm3 (0.0-0.8) 08/24/19 01:11 Eos # 0.1 K/mm3 (0.0-0.4) 08/24/19 01:11 Baso # 0.0 K/mm3 (0.0-0.1) 08/24/19 01:11 Seg Neutrophils % 53.6 % (40.0-70.0) 08/24/19 01:11 Seg Neutrophils # 4.9 K/mm3 (1.8-7.7) 08/24/19 01:11 PT 16.7 Sec. (12.2-14.9) H 08/24/19 01:11 INR 1.39 (0.87-1.13) H 08/24/19 01:11 APTT 22.4 Sec. (24.2-36.6) L 08/24/19 01:11 Sodium 137 mmol/L (137-145) 08/24/19 01:11 Potassium 4.0 mmol/L (3.6-5.0) 08/24/19 01:11 Chloride 102.3 mmol/L (98-107) 08/24/19 01:11 Carbon Dioxide 23 mmol/L (22-30) 08/24/19 01:11 16 mmol/L 08/24/19 01:11 BUN 15 mg/dL (9-20) 08/24/19 01:11 0.9 mg/dL (0.8-1.5) 08/24/19 01:11 Estimated GFR > 60 ml/min 08/24/19 01:11 17 % 08/24/19 01:11 Glucose 148 mg/dL (75-100) H 08/24/19 01:11 Calcium 8.2 mg/dL (8.4-10.2) L 08/24/19 01:11 358 units/L (55-170) H 08/24/19 01:11 CK-MB (CK-2) 3.7 ng/mL (0.0-4.0) 08/24/19 01:11 CK-MB (CK-2) Rel Index 1.0 (0-4) 08/24/19 01:11 < 0.010 ng/mL (0.00-0.029) 08/24/19 01:11 NT-Pro-B Natriuret Pep 158.4 pg/mL (0-900) 08/24/19 01:11 Assessment and Plan Assessment and plan: Unstable angina -On IV nitroglycerin drip -On aspirin and statin -Not started on IV heparin due to recent GIB -We'll also do CTA chest to assess for dissection -Cardiology consulted Cardiogenic shock -On IV dopamine, monitor blood pressure Acute on chronic diastolic heart failure with EF of 55-60% per echo in 04/2017 -On IV diuretic/CHF protocol -Repeat echo pending CAD -Status post cardiac stents 3 Chronic anticoagulation use -INR level subtherapeutic AOCD/history of recent GI bleed -H&H stable Hyperlipidemia -Continue statin Obesity with BMI of 36 -Lifestyle modification recommended -GI prophylaxis with Pepcid -DVT prophylaxis with heparin Disposition: I spent 45 minutes providing critical care to this seriously ill patient who requires frequent reassessments of his cardiovascular status.
[2019-08-24] MEDS ORDERED: NITROGLYCERIN DRIP 50 MG/250 ML BOTTLE IV SCH (04:00)
[2019-08-24] MEDS: ONDANSETRON 4 MG/2 ML INJ IV PRN ×2 (04:15→05:33)
[2019-08-24] MEDS: MORPHINE 4 MG/1 ML INJ IV PRN ×3 (05:33→07:24)
--- NOTE | 2019-08-24 05:42 | Cat Scan Report ---
CTA CHEST WITH CONTRAST INDICATION / CLINICAL INFORMATION: SEVERE CHEST PAIN. TECHNIQUE: Axial CT images were obtained through the chest after injection of 100 mL Omnipaque 350 IV contrast. 3 plane MIP and/or 3D reconstructions were produced. All CT scans at this location are performed usin g CT dose reduction for ALARA by means of automated exposure control. COMPARISON: None available. FINDINGS: PULMONARY ARTERIES: No pulmonary emboli. THORACIC AORTA: No significant abnormality. HEART: Mildly enlarged. No pericardial effusion. CORONARY ARTERIES: Mild coronary artery calcification. MEDIASTINUM / MARIAH: No significant abnormality. PLEURA: Small bilateral pleural effusions. No pneumothorax. LUNGS: Mild to moderate interstitial pulmonary edema with peribronchial cuffing. ADDITIONAL FINDINGS: None. UPPER ABDOMEN: No acute findings. SKELETAL STRUCTURES: No significant osseous abnormality. IMPRESSION: 1. No CT evidence for pulmonary embolism. 2. Mild/moderate pulmonary edema with small bilateral pleural effusions. Signer Name: Aimee Comer MD Signed: 08/24/2019 5:37 AM Workstation Name: [id number]
[2019-08-24 06:01] LABS: Hematocrit 32.9 % (35.5-45.6); Hemoglobin 10.6 gm/dl (11.8-15.2); Mean Corpuscular HGB Conc 32 % (32-34); Mean Corpuscular Volume 77 fl (84-94); Platelet Count 167 K/mm3 (140-440); Red Cell Distribution Width 16.1 % (13.2-15.2)
[2019-08-24 06:15] LABS: Alanine Aminotransferase 22 units/L (7-56); Albumin 3.7 g/dL (3.9-5); BUN/Creatinine Ratio 19; Blood Urea Nitrogen 17 mg/dL (9-20); Calcium 8.2 mg/dL (8.4-10.2); Hemolysis Index 3
[2019-08-24 06:35] LABS: Chol/HDL Ratio 4.2 %
[2019-08-24 06:40] LABS: Basophils % (Manual) 0 % (0.0-1.8); Eosinophils % (Manual) 0 % (0.0-4.3); Hypochromasia 1+; Total Cells Counted 100
[2019-08-24] MEDS: HEPARIN/ 0.45% NACL DRIP 25,000 UNIT/500 ML BAG IV SCH ×2 (06:47→17:08)
--- NOTE | 2019-08-24 06:55 | Event Note ---
<HEATH MORALES - Last Filed: 08/24/19 06:47> Date: 08/24/19 The patient arrived to ICU and continued to complain of 10/10 chest pain status change was performed which showed STEMI in anterior leads. 0545 Code STEMI was called. Stat labs ordered. Call was placed to interventional radiologists-white and response. mushroom laborer team was called pt was transported to lab intern. Pt was in ED physician in lab intern. He continues to c/o 10/10 crushing chest pain. Reviewed results for CT angio chest- negative for PE. Pt returned to ICU at 0640. Troponin now 0.177 (trending up from 0.012). Discussed case with Dr. Marshall and order was placed to start on heparin gtt benefit out weighs risk at this time. Pt remains on dopamine and nitro [id number] Dr. Jef Galaviz stated that he is on his way in to see pt. <RYAN MARSHALL - Last Filed: 08/24/19 22:24> I personally discussed the pt with the WINDOWS [employer] ADMINISTRATOR-C, I agree with the above documentations
[2019-08-24] MEDS ORDERED: NORepinephrine/NS 4 MG-250 ML 4 MG/250 ML BAG IV ONE (07:10)
[2019-08-24] MEDS: NORepinephrine/NS 4 MG-250 ML 4 MG/250 ML BAG IV SCH ×2 (07:15→22:40)
[2019-08-24 07:19] LABS: Hematocrit 30.9 % (35.5-45.6); Hemoglobin 9.8 gm/dl (11.8-15.2)
[2019-08-24 07:41] LABS: INR 1.44 (0.87-1.13); Partial Thromboplastin Time 25.2 Sec. (24.2-36.6)
[2019-08-24] MEDS ORDERED: MORPHINE 2 MG/1 ML INJ IV PRN (07:43)
--- NOTE | 2019-08-24 07:59 | Progress Note ---
Subjective Date of service: 08/24/19 Interval history: CONSULT DICTATED ACS WITH HYPOTENSION PROBABLE STEMI WITH CARDIOGENIC SHOCK ON PRESSORS URGENT ANGIOGRAPHY WILL BE PERFORMED Objective Vital Signs Temp Pulse Resp BP BP Pulse Ox 08/24/19 04:30 112 H 14 110/76 97 08/24/19 04:15 81 17 102/54 94 08/24/19 04:01 110 H 11 L 75/33 97 08/24/19 03:45 65 12 82/48 98 08/24/19 03:31 63 14 99/59 89 08/24/19 03:30 19 08/24/19 03:15 64 13 91/55 99 08/24/19 03:00 69 13 91/55 100 08/24/19 02:45 68 16 86/53 99 08/24/19 02:31 64 14 90/55 93 08/24/19 02:30 16 08/24/19 02:17 19 08/24/19 02:15 67 12 90/55 99 08/24/19 01:45 65 17 106/65 99 08/24/19 01:17 17 08/24/19 01:06 98.2 F 70 17 93/59 93/59 99 - Labs and Meds Cardiac Enzymes 08/24/19 08/24/19 Range/Units 01:11 Unknown AST 43 H (5-40) units/L CK-MB (CK-2) 3.7 (0.0-4.0) ng/mL Coagulation 08/24/19 08/24/19 Range/Units 01:11 07:07 PT 16.7 H 17.2 H (12.2-14.9) Sec. INR 1.39 H 1.44 H (0.87-1.13) APTT 22.4 L 25.2 (24.2-36.6) Sec. Lipids 08/24/19 Range/Units 05:44 Triglycerides 92 (2-149) mg/dL Cholesterol 168 (50-199) mg/dL HDL Cholesterol 40 (40-59) mg/dL Cholesterol/HDL Ratio 4.20 % CBC 08/24/19 08/24/19 08/24/19 Range/Units 01:11 07:07 Unknown WBC 9.1 10.5 (4.5-11.0) K/mm3 RBC 4.34 4.30 (3.65-5.03) M/mm3 Hgb 10.6 L 9.8 L 10.6 L (11.8-15.2) gm/dl Hct 33.6 L 30.9 L 32.9 L (35.5-45.6) % Plt Count 160 158 167 (140-440) K/mm3 Lymph # 3.7 (1.2-5.4) K/mm3 [place] # 0.4 (0.0-0.8) K/mm3 Eos # 0.1 (0.0-0.4) K/mm3 Baso # 0.0 (0.0-0.1) K/mm3 Comprehensive Metabolic Panel 08/24/19 08/24/19 Range/Units 01:11 Unknown Sodium 137 136 L (137-145) mmol/L Potassium 4.0 3.9 (3.6-5.0) mmol/L Chloride 102.3 100.0 (98-107) mmol/L Carbon Dioxide 23 20 L (22-30) mmol/L BUN 15 17 (9-20) mg/dL Creatinine 0.9 0.9 (0.8-1.5) mg/dL Glucose 148 H 166 H (75-100) mg/dL Calcium 8.2 L 8.2 L (8.4-10.2) mg/dL AST 43 H (5-40) units/L ALT 22 (7-56) units/L Alkaline Phosphatase 55 (35-129) units/L Total Protein 7.0 (6.3-8.2) g/dL Albumin 3.7 L (3.9-5) g/dL
[2019-08-24] MEDS ORDERED: MORPHINE 2 MG/1 ML INJ IV ONE (08:00)
[2019-08-24] MEDS ORDERED: MORPHINE 2 MG/1 ML INJ IM ONE (08:00)
[2019-08-24] MEDS ORDERED: HEPARIN/NS 5000 UNIT/500ML 1,000 ML IR ONE (08:04)
[2019-08-24] MEDS ORDERED: EPINEPHrine 1:10,000 1 MG/10 ML SYRINGE ONE (08:04)
[2019-08-24] MEDS ORDERED: LIDOCAINE PF 100 MG/5 ML (CARDIAC SYRINGE) IV ONE (08:04)
[2019-08-24] MEDS ORDERED: MIDAZOLAM 2 MG/2 ML INJ ONE (08:04)
[2019-08-24] MEDS ORDERED: ATROPINE 0.1% (1 MG/10 ML) CARDIAC SYRINGE ONE (08:04)
[2019-08-24] MEDS ORDERED: VERAPAMIL 5 MG/2 ML INJ ONE (08:05)
[2019-08-24] MEDS ORDERED: LIDOCAINE (2%) 20 MG/1 ML VIAL 20 ML MDV INFILTRATI ONE (08:05)
[2019-08-24] MEDS ORDERED: PHENYLEPHRINE/NS 1,000 MCG/10 ML SYRINGE (OR USE) IV ONE (08:05)
[2019-08-24] MEDS ORDERED: fentaNYL 100 MCG/2 ML INJ ONE (08:05)
[2019-08-24] MEDS ORDERED: NITROGLYCERIN SYRINGE 3 ML ONE (08:05)
[2019-08-24] MEDS ORDERED: SODIUM CHLORIDE 0.9% 500 ML 500 ML ONE (08:37)
--- NOTE | 2019-08-24 08:37 | Progress Note ---
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 Physical - Constitutional Vitals: Temp Pulse Resp BP Pulse Ox 98.2 F 112 H 14 110/76 98 08/24/19 01:06 08/24/19 04:30 08/24/19 04:30 08/24/19 04:30 08/24/19 08:08 General appearance: Present: obese, other (in acute painful distress) Results - Labs CBC & Chem 7: 08/24/19 Unknown 08/24/19 Unknown Labs: Laboratory Last Values WBC 10.5 K/mm3 (4.5-11.0) 08/24/19 Unknown RBC 4.30 M/mm3 (3.65-5.03) 08/24/19 Unknown Hgb 10.6 gm/dl (11.8-15.2) L 08/24/19 Unknown Hct 32.9 % (35.5-45.6) L 08/24/19 Unknown MCV 77 fl (84-94) L 08/24/19 Unknown MCH 25 pg (28-32) L 08/24/19 Unknown MCHC 32 % (32-34) 08/24/19 Unknown RDW 16.1 % (13.2-15.2) H 08/24/19 Unknown Plt Count 167 K/mm3 (140-440) 08/24/19 Unknown Lymph % (Auto) 40.7 % (13.4-35.0) H 08/24/19 01:11 [place] % (Auto) 4.3 % (0.0-7.3) 08/24/19 01:11 Eos % (Auto) 0.9 % (0.0-4.3) 08/24/19 01:11 Baso % (Auto) 0.5 % (0.0-1.8) 08/24/19 01:11 Lymph # 3.7 K/mm3 (1.2-5.4) 08/24/19 01:11 [place] # 0.4 K/mm3 (0.0-0.8) 08/24/19 01:11 Eos # 0.1 K/mm3 (0.0-0.4) 08/24/19 01:11 Baso # 0.0 K/mm3 (0.0-0.1) 08/24/19 01:11 Add Manual Diff Complete 08/24/19 Unknown Total Counted 100 08/24/19 Unknown Seg Neutrophils % Recreation Coordinator 08/24/19 Unknown Seg Neuts % (Manual) 89.0 % (40.0-70.0) H 08/24/19 Unknown 0 % 08/24/19 Unknown 8.0 % (13.4-35.0) L 08/24/19 Unknown Reactive Lymphs % (Man) 0 % 08/24/19 Unknown 3.0 % (0.0-7.3) 08/24/19 Unknown 0 % (0.0-4.3) 08/24/19 Unknown 0 % (0.0-1.8) 08/24/19 Unknown 0 % 08/24/19 Unknown 0 % 08/24/19 Unknown 0 % 08/24/19 Unknown 0 % 08/24/19 Unknown Nucleated RBC % Not Reportable 08/24/19 Unknown Seg Neutrophils # 4.9 K/mm3 (1.8-7.7) 08/24/19 01:11 Seg Neutrophils # Man 9.3 K/mm3 (1.8-7.7) H 08/24/19 Unknown Band Neutrophils # 0.0 K/mm3 08/24/19 Unknown 0.8 K/mm3 (1.2-5.4) L 08/24/19 Unknown Abs React Lymphs (Man) 0.0 K/mm3 08/24/19 Unknown 0.3 K/mm3 (0.0-0.8) 08/24/19 Unknown 0.0 K/mm3 (0.0-0.4) 08/24/19 Unknown 0.0 K/mm3 (0.0-0.1) 08/24/19 Unknown 0.0 K/mm3 08/24/19 Unknown 0.0 K/mm3 08/24/19 Unknown 0.0 K/mm3 08/24/19 Unknown Blast Cells # 0.0 K/mm3 08/24/19 Unknown WBC Morphology Not Reportable 08/24/19 Unknown Hypersegmented Neuts Not Reportable 08/24/19 Unknown Hyposegmented Neuts Not Reportable 08/24/19 Unknown Hypogranular Neuts Not Reportable 08/24/19 Unknown Not Reportable 08/24/19 Unknown Not Reportable 08/24/19 Unknown Not Reportable 08/24/19 Unknown Not Reportable 08/24/19 Unknown Not Reportable 08/24/19 Unknown Not Reportable 08/24/19 Unknown Not Reportable 08/24/19 Unknown Not Reportable 08/24/19 Unknown Plt Clumps, EDTA Not Reportable 08/24/19 Unknown Not Reportable 08/24/19 Unknown Not Reportable 08/24/19 Unknown Not Reportable 08/24/19 Unknown Plt Morphology Comment Not Reportable 08/24/19 Unknown RBC Morphology Not Reportable 08/24/19 Unknown Dimorphic RBCs Not Reportable 08/24/19 Unknown Not Reportable 08/24/19 Unknown 1+ 08/24/19 Unknown Not Reportable 08/24/19 Unknown Not Reportable 08/24/19 Unknown Not Reportable 08/24/19 Unknown Not Reportable 08/24/19 Unknown Not Reportable 08/24/19 Unknown Not Reportable 08/24/19 Unknown Not Reportable 08/24/19 Unknown Not Reportable 08/24/19 Unknown Not Reportable 08/24/19 Unknown Not Reportable 08/24/19 Unknown Not Reportable 08/24/19 Unknown Not Reportable 08/24/19 Unknown Not Reportable 08/24/19 Unknown Not Reportable 08/24/19 Unknown Not Reportable 08/24/19 Unknown Not Reportable 08/24/19 Unknown Not Reportable 08/24/19 Unknown Acanthocytes (Spur) Not Reportable 08/24/19 Unknown Rouleaux Not Reportable 08/24/19 Unknown Not Reportable 08/24/19 Unknown Not Reportable 08/24/19 Unknown Not Reportable 08/24/19 Unknown Not Reportable 08/24/19 Unknown Hem Pathologist Commnt No 08/24/19 Unknown PT 17.2 Sec. (12.2-14.9) H 08/24/19 07:07 INR 1.44 (0.87-1.13) H 08/24/19 07:07 APTT 25.2 Sec. (24.2-36.6) 08/24/19 07:07 Sodium 136 mmol/L (137-145) L 08/24/19 Unknown Potassium 3.9 mmol/L (3.6-5.0) 08/24/19 Unknown Chloride 100.0 mmol/L (98-107) 08/24/19 Unknown Carbon Dioxide 20 mmol/L (22-30) L 08/24/19 Unknown 20 mmol/L 08/24/19 Unknown BUN 17 mg/dL (9-20) 08/24/19 Unknown 0.9 mg/dL (0.8-1.5) 08/24/19 Unknown Estimated GFR > 60 ml/min 08/24/19 Unknown 19 % 08/24/19 Unknown Glucose 166 mg/dL (75-100) H 08/24/19 Unknown Calcium 8.2 mg/dL (8.4-10.2) L 08/24/19 Unknown 0.40 mg/dL (0.1-1.2) 08/24/19 Unknown AST 43 units/L (5-40) H 08/24/19 Unknown ALT 22 units/L (7-56) 08/24/19 Unknown 55 units/L (35-129) 08/24/19 Unknown 358 units/L (55-170) H 08/24/19 01:11 CK-MB (CK-2) 3.7 ng/mL (0.0-4.0) 08/24/19 01:11 CK-MB (CK-2) Rel Index 1.0 (0-4) 08/24/19 01:11 0.177 ng/mL (0.00-0.029) H* D 08/24/19 05:44 NT-Pro-B Natriuret Pep 158.4 pg/mL (0-900) 08/24/19 01:11 7.0 g/dL (6.3-8.2) 08/24/19 Unknown 3.7 g/dL (3.9-5) L 08/24/19 Unknown 1.1 % 08/24/19 Unknown Triglycerides 92 mg/dL (2-149) 08/24/19 05:44 Cholesterol 168 mg/dL (50-199) 08/24/19 05:44 118 mg/dL (50-130) 08/24/19 05:44 40 mg/dL (40-59) 08/24/19 05:44 4.20 % 08/24/19 05:44 Active Medications - Current Medications Current Medications: Generic Name Dose Route Start Last Admin Trade Name Freq PRN Reason Stop Dose Admin Acetaminophen 650 mg 08/24/19 03:12 Tylenol PO Q4H PRN Pain MILD(1-3)/Fever >100.5/JAMIL Aspirin 325 mg 08/24/19 10:00 Ecotrin PO QDAY [facility] Atorvastatin Calcium 80 mg 08/24/19 22:00 Lipitor PO QHS [facility] Docusate Sodium 100 mg 08/24/19 10:00 Colace PO BID [facility] Famotidine 10 mg 08/24/19 10:00 Pepcid PO BID [facility] Furosemide 40 mg 08/24/19 10:00 Lasix IV DAILY [facility] Dopamine HCl/Dextrose 800 mg in 250 mls @ 4.519 mls/hr 08/24/19 03:11 08/24/19 04:40 Intropin Drip 800 Mg/D5w 250 Ml IV 08/26/19 10:30 10 mcg/kg/min TITR ONE 22.594 mls/hr Titration Protocol 2 MCG/KG/MIN Nitroglycerin/Dextrose 50 mg in 250 mls @ 3 mls/hr 08/24/19 04:00 08/24/19 04:40 Tridil Drip 50mg/250ml IV 10 mcg/min TITR JAKE 3 mls/hr Titration Protocol 10 MCG/MIN Heparin Sodium/Sodium Chloride 25,000 unit in 500 mls @ 20 mls/hr 08/24/19 07:00 08/24/19 06:47 Heparin/ 0.45% Nacl-25,000 Unit/500 Ml IV 1,000 units/hr TITRATE JAKE 20 mls/hr Administration Protocol 1,000 UNITS/HR Norepinephrine 4 mg in 250 mls @ 7.5 mls/hr 08/24/19 08:00 08/24/19 07:45 Levophed Drip 4 Mg/Ns 250 Ml IV 10 mcg/min TITR JAKE 37.5 mls/hr Titration Protocol 2 MCG/MIN Morphine Sulfate 2 mg 08/24/19 03:12 08/24/19 07:24 Morphine IV 2 mg Q4H PRN Administration Pain , Severe (7-10) Morphine Sulfate 2 mg 08/24/19 07:43 08/24/19 07:56 Morphine IV 2 mg Q5MIN PRN Administration Chest Pain unrelieved by NTG Ondansetron HCl 4 mg 08/24/19 03:12 08/24/19 05:33 Zofran IV 4 mg Q8H PRN Administration Nausea And Vomiting Oxycodone/Acetaminophen 1 tab 08/24/19 03:12 Percocet 5/325 PO Q6H PRN Pain, Moderate (4-6) Sodium Chloride 10 ml 08/24/19 10:00 Sodium Chloride Flush Syringe 10 Ml IV BID JAKE Sodium Chloride 10 ml 08/24/19 03:12 Sodium Chloride Flush Syringe 10 Ml IV PRN PRN LINE FLUSH
[2019-08-24] MEDS: HEPARIN 10,000 UNITS/10 ML VIAL ONE ×2 (08:46→09:27)
[2019-08-24] MEDS ORDERED: HEPARIN/NS 5000 UNIT/500ML 500 ML IR ONE (09:21)
[2019-08-24] MEDS ORDERED: TIROFIBAN/NS 12,500 MCG/250 ML BAG IV ONE (09:21)
[2019-08-24] MEDS: TIROFIBAN/NS 12,500 MCG/250 ML BAG IV SCH ×2 (09:30→17:36)
[2019-08-24] MEDS ORDERED: CLOPIDOGREL 300 MG TAB ONE (09:36)
[2019-08-24] MEDS ORDERED: ALUM-MAG HYDROXIDE-SIMETHICONE 200-200-20MG/5ML ORAL LIQD 30 ML ONE (09:36)
[2019-08-24] MEDS ORDERED: ASPIRIN EC 325 MG TAB PO ONE (09:43)
[2019-08-24] MEDS: ASPIRIN EC 325 MG TAB PO SCH (09:47)
--- NOTE | 2019-08-24 09:52 | Event Note ---
Date: 08/24/19 We were called to see this 79-year-old patient with chest pain, ECG suspicious for acute ST elevation anterior wall myocardial infarction. Emergency cardiac catheterization revealed complete occlusion of the LAD in its proximal segment. We performed successful angioplasty with deployment of a 4.5 mm bare-metal stent, excellent angiographic result but phasic flow down the distal LAD. An intra-aortic balloon pump was deployed, for hemodynamic support and to improve coronary flow. The patient is return to the CCU in stable condition. Medications include intravenous heparin at low intensity, Aggrastat for 18 hours, aspirin and Plavix. The bare-metal stent was chosen a recognition of the patient's chronic warfarin therapy. An echocardiogram is recommended for left ventricular function and valvular function assessment. The patient will be signed off to his primary cardiologists [facility] for continued cardiac care.
[2019-08-24] MEDS ORDERED: HEPARIN 5,000 UNIT/1 ML VIAL SUB-Q SCH (10:00)
--- NOTE | 2019-08-24 10:01 | Cardiac Catherization Report ---
CARDIAC CATHETERIZATION AND CORONARY ANGIOPLASTY REPORT REASON FOR PROCEDURE: Acute Coronary Syndrome. The patient is a 79-year-old man with a history of coronary artery disease. Two years ago, he underwent coronary angioplasty and stenting of the right coronary artery. At that time, there was disease noted in the first diagonal branch of the LAD, otherwise the left coronary system was reported without significant disease. He presents to the hospital at this time with chest pain. He was admitted to the CCU. During the period of a CCU admission, he reported recurrent chest pain and EKG was suggestive of acute coronary syndrome, and troponin elevation. Emergency cardiac catheterization protocol was activated for recurrent and persistent chest pain. DESCRIPTION OF PROCEDURE: The patient was prepped and draped under emergency protocol. The right femoral artery was entered using Seldinger technique followed by placement of a 6-Indonesian sheath. A #4 right Kimi catheter was used for right coronary angiography. We then exchanged for a #3.5 XB guiding catheter for left coronary angiography. The angiograms were reviewed. There was to [id number] diffuse ectasia involving both left and right coronary arteries. The left main coronary artery was free of significant disease. The left anterior descending artery was completely occluded in its proximal segment. This was the infarct related lesion. The circumflex artery was a severely ectatic, contained mild diffuse atherosclerosis, but no significant obstructive lesions. The right coronary artery was dominant. This vessel contained a long stent in its mid segment, distended segment was patent, otherwise this vessel contained diffuse moderate atherosclerosis involving its proximal and mid segments. CORONARY ANGIOPLASTY: Ad hoc primary angioplasty of the LAD was performed. We introduced a 0.014 inch Liner Replacer 50 guidewire, successfully across penetrating the occluded proximal LAD. Balloon angioplasty was then performed, with cheondoism of ETHAN 0-1 flow distally. After identifying the segment of occlusive stenosis, we then deployed a 4.5 x 18 mm bare metal stent across the lesional segment of the proximal LAD. This restored ETHAN 2-3 flow down the LAD. After restoring LAD flow, we noted a medium to large diagonal branch, which originated from the lesional segment. There was no significant ostial compromise of the diagonal branch, but we did note a focal 80% stenosis of the diagonal branch in its proximal segment. Another Liner Replacer 50 guidewire was then introduced into the diagonal branch through the stent struts of the recently deployed LAD stent. A balloon catheter was then transitioned into the diagonal and successful balloon angioplasty was performed reducing the stenosis to 20%. However, multiple attempts at transition a stent in the diagonal branch were unsuccessful. The catheters and the wires were then removed, post-intervention angiograms revealed an excellent angiographic result at the primary site of the LAD, but with ETHAN 2-3 distal LAD flow. There was normal flow through the diagonal branch, with a residual 20% stenosis in its proximal segment. INTRAAORTIC BALLOON COUNTERPULSATION: An intraaortic balloon pump was introduced with successful 1:1 counterpulsation, intended to enhance the LAD flow over the next 24-48 hours. At the conclusion of the procedure, the patient was awake and alert, hemodynamically stable, and chest pain free. He was returned to the post-procedure CCU in stable condition. CONCLUSION: 1. Acute Coronary Syndrome. 2. 100% occlusion of the proximal LAD infarct lesion. 3. Successful primary angioplasty and stenting of the LAD. 4. Successful balloon angioplasty of a secondary stenosis of the proximal diagonal branch of the LAD. 5. Prior right coronary artery stents are patent. 6. Successful deployment of an intraaortic balloon pump for hemodynamic support. The patient will be started on Plavix therapy. He has a previous indication for warfarin therapy, which necessitated the choice of a bare metal stent for this procedure. An echocardiogram will be recommended for left ventricular function and valvular function assessment. [facility]# [id number] CORNELIA/KANDICE MATOS
--- NOTE | 2019-08-24 12:04 | Progress Note ---
Assessment and Plan Assessment and plan: --Probable STEMI: Status post emergency cardiac catheterization Status post PCI to LAD,Aspirin and Plavix Continue heparin, Aggrastat drip Follow echocardiogram LV function ejection fraction Cardiology following --Cardiogenic shock On IV dopamine, Levophed, titrate systolic blood pressure more than 100 --Acute on chronic diastolic heart failure with EF of 55-60% per echo in 04/2017 Continue heart failure medications --History of CAD;Status post cardiac stents 3 Continue current cardiac medications --Chronic anticoagulation use INR level subtherapeutic, patient is on heparin drip --Hyperlipidemia:Continue statin --Obesity with BMI of 34 Lifestyle modification weight reduction when medically stable --GI prophylaxis with Pepcid --DVT prophylaxis ;on heparin drip Monitor closely and adjust management as needed Plan of care reviewed with the patient and family at the bedside Critical care time 35 minutes The high probability of a clinically significant, sudden or life threatening deterioration of the [pulm, cardiac, metabolic] system(s) required my full and direct attention, intervention and personal management. The aggregate critical care time was [35] minutes. This time is in addition to time spent performing reported procedures but includes the following: [] Data Review and interpretation [] Patient assessment and monitoring of vital signs [] Documentation [] Medication orders and management History Interval history: 79-year-old -German male patient with significant past medical history of coronary artery disease status post PCI 3 hypertension dyslipidemia history of GI bleed and prostate cancer was admitted through emergency room with chest pain and possible ST elevation [place]. Patient was admitted to ICU appropriately managed evaluated by cardiology and underwent emergency cardiac cath status post PCI to LAD Patient was in cardiogenic shock had intra-aortic balloon pump placement and on vasopressors, Aggrastat, heparin drips Patient was also started on dual antiplatelets aspirin and Plavix. When I evaluated after he came back from CAT lab Patient was mildly lethargic but easily awakens responds appropriately Complaints of vague with a mild chest pain Vital signs noted Hospitalist Physical - Constitutional Vitals: Temp Pulse Resp BP Pulse Ox 97.5 F L 74 18 130/60 98 08/24/19 08:00 08/24/19 11:31 08/24/19 11:31 08/24/19 11:31 08/24/19 11:31 General appearance: Present: obese, other (in acute painful distress) Results - Labs CBC & Chem 7: 08/24/19 Unknown 08/24/19 Unknown Labs: Laboratory Last Values WBC 10.5 K/mm3 (4.5-11.0) 08/24/19 Unknown RBC 4.30 M/mm3 (3.65-5.03) 08/24/19 Unknown Hgb 10.6 gm/dl (11.8-15.2) L 08/24/19 Unknown Hct 32.9 % (35.5-45.6) L 08/24/19 Unknown MCV 77 fl (84-94) L 08/24/19 Unknown MCH 25 pg (28-32) L 08/24/19 Unknown MCHC 32 % (32-34) 08/24/19 Unknown RDW 16.1 % (13.2-15.2) H 08/24/19 Unknown Plt Count 167 K/mm3 (140-440) 08/24/19 Unknown Lymph % (Auto) 40.7 % (13.4-35.0) H 08/24/19 01:11 [place] % (Auto) 4.3 % (0.0-7.3) 08/24/19 01:11 Eos % (Auto) 0.9 % (0.0-4.3) 08/24/19 01:11 Baso % (Auto) 0.5 % (0.0-1.8) 08/24/19 01:11 Lymph # 3.7 K/mm3 (1.2-5.4) 08/24/19 01:11 [place] # 0.4 K/mm3 (0.0-0.8) 08/24/19 01:11 Eos # 0.1 K/mm3 (0.0-0.4) 08/24/19 01:11 Baso # 0.0 K/mm3 (0.0-0.1) 08/24/19 01:11 Add Manual Diff Complete 08/24/19 Unknown Total Counted 100 08/24/19 Unknown Seg Neutrophils % Data Systems Analyst 08/24/19 Unknown Seg Neuts % (Manual) 89.0 % (40.0-70.0) H 08/24/19 Unknown 0 % 08/24/19 Unknown 8.0 % (13.4-35.0) L 08/24/19 Unknown Reactive Lymphs % (Man) 0 % 08/24/19 Unknown 3.0 % (0.0-7.3) 08/24/19 Unknown 0 % (0.0-4.3) 08/24/19 Unknown 0 % (0.0-1.8) 08/24/19 Unknown 0 % 08/24/19 Unknown 0 % 08/24/19 Unknown 0 % 08/24/19 Unknown 0 % 08/24/19 Unknown Nucleated RBC % Not Reportable 08/24/19 Unknown Seg Neutrophils # 4.9 K/mm3 (1.8-7.7) 08/24/19 01:11 Seg Neutrophils # Man 9.3 K/mm3 (1.8-7.7) H 08/24/19 Unknown Band Neutrophils # 0.0 K/mm3 08/24/19 Unknown 0.8 K/mm3 (1.2-5.4) L 08/24/19 Unknown Abs React Lymphs (Man) 0.0 K/mm3 08/24/19 Unknown 0.3 K/mm3 (0.0-0.8) 08/24/19 Unknown 0.0 K/mm3 (0.0-0.4) 08/24/19 Unknown 0.0 K/mm3 (0.0-0.1) 08/24/19 Unknown 0.0 K/mm3 08/24/19 Unknown 0.0 K/mm3 08/24/19 Unknown 0.0 K/mm3 08/24/19 Unknown Blast Cells # 0.0 K/mm3 08/24/19 Unknown WBC Morphology Not Reportable 08/24/19 Unknown Hypersegmented Neuts Not Reportable 08/24/19 Unknown Hyposegmented Neuts Not Reportable 08/24/19 Unknown Hypogranular Neuts Not Reportable 08/24/19 Unknown Not Reportable 08/24/19 Unknown Not Reportable 08/24/19 Unknown Not Reportable 08/24/19 Unknown Not Reportable 08/24/19 Unknown Not Reportable 08/24/19 Unknown Not Reportable 08/24/19 Unknown Not Reportable 08/24/19 Unknown Not Reportable 08/24/19 Unknown Plt Clumps, EDTA Not Reportable 08/24/19 Unknown Not Reportable 08/24/19 Unknown Not Reportable 08/24/19 Unknown Not Reportable 08/24/19 Unknown Plt Morphology Comment Not Reportable 08/24/19 Unknown RBC Morphology Not Reportable 08/24/19 Unknown Dimorphic RBCs Not Reportable 08/24/19 Unknown Not Reportable 08/24/19 Unknown 1+ 08/24/19 Unknown Not Reportable 08/24/19 Unknown Not Reportable 08/24/19 Unknown Not Reportable 08/24/19 Unknown Not Reportable 08/24/19 Unknown Not Reportable 08/24/19 Unknown Not Reportable 08/24/19 Unknown Not Reportable 08/24/19 Unknown Not Reportable 08/24/19 Unknown Not Reportable 08/24/19 Unknown Not Reportable 08/24/19 Unknown Not Reportable 08/24/19 Unknown Not Reportable 08/24/19 Unknown Not Reportable 08/24/19 Unknown Not Reportable 08/24/19 Unknown Not Reportable 08/24/19 Unknown Not Reportable 08/24/19 Unknown Not Reportable 08/24/19 Unknown Acanthocytes (Spur) Not Reportable 08/24/19 Unknown Rouleaux Not Reportable 08/24/19 Unknown Not Reportable 08/24/19 Unknown Not Reportable 08/24/19 Unknown Not Reportable 08/24/19 Unknown Not Reportable 08/24/19 Unknown Hem Pathologist Commnt No 08/24/19 Unknown PT 17.2 Sec. (12.2-14.9) H 08/24/19 07:07 INR 1.44 (0.87-1.13) H 08/24/19 07:07 APTT 25.2 Sec. (24.2-36.6) 08/24/19 07:07 Sodium 136 mmol/L (137-145) L 08/24/19 Unknown Potassium 3.9 mmol/L (3.6-5.0) 08/24/19 Unknown Chloride 100.0 mmol/L (98-107) 08/24/19 Unknown Carbon Dioxide 20 mmol/L (22-30) L 08/24/19 Unknown 20 mmol/L 08/24/19 Unknown BUN 17 mg/dL (9-20) 08/24/19 Unknown 0.9 mg/dL (0.8-1.5) 08/24/19 Unknown Estimated GFR > 60 ml/min 08/24/19 Unknown 19 % 08/24/19 Unknown Glucose 166 mg/dL (75-100) H 08/24/19 Unknown Calcium 8.2 mg/dL (8.4-10.2) L 08/24/19 Unknown 0.40 mg/dL (0.1-1.2) 08/24/19 Unknown AST 43 units/L (5-40) H 08/24/19 Unknown ALT 22 units/L (7-56) 08/24/19 Unknown 55 units/L (35-129) 08/24/19 Unknown 358 units/L (55-170) H 08/24/19 01:11 CK-MB (CK-2) 3.7 ng/mL (0.0-4.0) 08/24/19 01:11 CK-MB (CK-2) Rel Index 1.0 (0-4) 08/24/19 01:11 0.177 ng/mL (0.00-0.029) H* D 08/24/19 05:44 NT-Pro-B Natriuret Pep 158.4 pg/mL (0-900) 08/24/19 01:11 7.0 g/dL (6.3-8.2) 08/24/19 Unknown 3.7 g/dL (3.9-5) L 08/24/19 Unknown 1.1 % 08/24/19 Unknown Triglycerides 92 mg/dL (2-149) 08/24/19 05:44 Cholesterol 168 mg/dL (50-199) 08/24/19 05:44 118 mg/dL (50-130) 08/24/19 05:44 40 mg/dL (40-59) 08/24/19 05:44 4.20 % 08/24/19 05:44 Active Medications - Current Medications Current Medications: Generic Name Dose Route Start Last Admin Trade Name Freq PRN Reason Stop Dose Admin Acetaminophen 650 mg 08/24/19 03:12 Tylenol PO Q4H PRN Pain MILD(1-3)/Fever >100.5/JAMIL Aspirin 325 mg 08/24/19 10:00 08/24/19 09:47 Ecotrin PO 325 mg QDAY [facility] Administration Atorvastatin Calcium 80 mg 08/24/19 22:00 Lipitor PO QHS JAKE Clopidogrel Bisulfate 75 mg 08/25/19 10:00 Plavix PO QDAY [facility] Docusate Sodium 100 mg 08/24/19 10:00 Colace PO BID JAKE Famotidine 10 mg 08/24/19 10:00 Pepcid PO BID JAKE Furosemide 40 mg 08/24/19 10:00 Lasix IV DAILY JAKE Dopamine HCl/Dextrose 800 mg in 250 mls @ 4.519 mls/hr 08/24/19 03:11 08/24/19 04:40 Intropin Drip 800 Mg/D5w 250 Ml IV 08/26/19 10:30 10 mcg/kg/min TITR ONE 22.594 mls/hr Titration Protocol 2 MCG/KG/MIN Nitroglycerin/Dextrose 50 mg in 250 mls @ 3 mls/hr 08/24/19 04:00 08/24/19 04:40 Tridil Drip 50mg/250ml IV 10 mcg/min TITR JAKE 3 mls/hr Titration Protocol 10 MCG/MIN Heparin Sodium/Sodium Chloride 25,000 unit in 500 mls @ 20 mls/hr 08/24/19 07:00 08/24/19 06:47 Heparin/ 0.45% Nacl-25,000 Unit/500 Ml IV 1,000 units/hr TITRATE JAKE 20 mls/hr Administration Protocol 1,000 UNITS/HR Norepinephrine 4 mg in 250 mls @ 7.5 mls/hr 08/24/19 08:00 08/24/19 11:15 Levophed Drip 4 Mg/Ns 250 Ml IV 8 mcg/min TITR JAKE 30 mls/hr Titration Protocol 2 MCG/MIN Tirofiban/Sodium Chloride 12,500 mcg in 250 mls @ 21 mls/hr 08/24/19 10:00 Aggrastat Drip (12.5 Mg/250 Ml) IV 08/25/19 03:59 DIRECT JAKE Protocol Per Protocol Lisinopril 2.5 mg 08/24/19 10:00 Zestril PO QDAY [facility] Metoprolol Tartrate 50 mg 08/24/19 10:00 Lopressor PO BID [facility] Morphine Sulfate 2 mg 08/24/19 03:12 08/24/19 07:24 Morphine IV 2 mg Q4H PRN Administration Pain , Severe (7-10) Morphine Sulfate 2 mg 08/24/19 07:43 08/24/19 07:56 Morphine IV 2 mg Q5MIN PRN Administration Chest Pain unrelieved by NTG Ondansetron HCl 4 mg 08/24/19 03:12 08/24/19 05:33 Zofran IV 4 mg Q8H PRN Administration Nausea And Vomiting Oxycodone/Acetaminophen 1 tab 08/24/19 03:12 Percocet 5/325 PO Q6H PRN Pain, Moderate (4-6) Sodium Chloride 10 ml 08/24/19 10:00 Sodium Chloride Flush Syringe 10 Ml IV BID JAKE Sodium Chloride 10 ml 08/24/19 03:12 Sodium Chloride Flush Syringe 10 Ml IV PRN PRN LINE FLUSH
[2019-08-24] MEDS: METOPROLOL TARTRATE 50 MG TAB PO SCH ×2 (13:02→21:47)
[2019-08-24] MEDS: LISINOPRIL 5 MG TAB PO SCH (13:04)
[2019-08-24] MEDS: FUROSEMIDE 40 MG/4 ML INJ IV SCH (13:34)
[2019-08-24] MEDS: DOCUSATE SODIUM 100 MG CAP PO SCH ×2 (13:35→21:43)
[2019-08-24] MEDS: FAMOTIDINE 10 MG TAB PO SCH ×2 (13:35→21:43)
[2019-08-24 15:47] LABS: Hematocrit 30.6 % (35.5-45.6); Hemoglobin 9.4 gm/dl (11.8-15.2)
--- NOTE | 2019-08-24 20:13 | Consultation ---
HISTORY OF PRESENT ILLNESS: The patient is a 79-year-old male with a history of coronary artery disease, hypertension, hyperlipidemia and prostate cancer. He presented to the Emergency Room after midnight with precordial chest pain described as pressure and burning. It radiated to the left arm. There is no shortness of breath, nausea, vomiting or diaphoresis. He has known history of coronary artery disease and previous myocardial infarction. He has had multiple stents placed in the past, the last was in 2017. There has been no heart failure or arrhythmias. There has been no strokes smoking or COPD. There has been no peripheral vascular disease. There has been no palpitations, edema, orthopnea. He was hospitalized. The patient was hospitalized here about a week ago with rectal bleeding and according to his , the workup was negative. He does not describe any recent rectal bleeding. He has been compliant with medications. There has been no smoking or alcohol use. PAST MEDICAL AND SURGICAL HISTORY: Prostate surgery, prostate cancer. FAMILY HISTORY: Unremarkable. SOCIAL HISTORY: Smoking: None. Alcohol: No heavy use. MEDICATIONS: See the nurse's list. REVIEW OF SYSTEMS: He did not describe any significant shortness of breath, tachycardia, syncope, claudication, or edema. There is no history of peripheral vascular disease. PHYSICAL EXAMINATION: GENERAL: Well-developed, moderately obese, appears quite uncomfortable, is alert and oriented. HEENT: Eyes, nose and throat: Unremarkable. NECK: Reveals no JVD, no bruits. Supple, no masses. LUNGS: Coarse breath sounds. No rales or rhonchi. No labored respirations. CARDIOVASCULAR: Regular rhythm, S4 gallop. Grade 1 systolic murmur. ABDOMEN: Soft, nontender, no masses. Bowel sounds intact. EXTREMITIES: No cyanosis, clubbing, edema. Peripheral pulses are intact, but somewhat diminished. NEUROLOGICAL: Grossly symmetrical. SKIN: Clear. DIAGNOSTIC DATA: The first EKG showed sinus rhythm, first degree AV block, 1 mm to [address] depression precordially, inverted Ts in leads III and aVF. Second EKG shows mild ST elevation in the precordial leads. CAT scan shows no evidence of pulmonary embolus or aortic dissection. Blood tests remarkable for hemoglobin of 10 and mildly elevated troponin. IMPRESSION: 1. Prolonged chest pain: A pulmonary embolus and aortic dissection have been ruled out. The initial EKG showed no evidence of ST elevation or ischemia. The second EKG showed evidence of a probable ST elevation myocardial infarction. 2. Hypotension: Suspect early cardiogenic shock. 3. Anemia, status post recent gastrointestinal bleed, no signs of active bleeding. 4. Hypertension. 5. Hyperlipidemia. 6. Obesity. PLAN: Intravenous therapy for hypotension and acute coronary syndrome. Coronary angiography will be performed at this time given the persistent chest pain and mild ST elevation. JOB# [id number] GILL/NTS
--- NOTE | 2019-08-25 03:34 | XRay Report ---
CHEST 1 VIEW 08/25/2019 2:03 AM INDICATION / CLINICAL INFORMATION: post PCI. COMPARISON: 08/24/19 FINDINGS: SUPPORT DEVICES: Intra-aortic balloon pump projects over the upper aortic arch. HEART / MEDIASTINUM: Heart is mildly enlarged but stable. LUNGS / PLEURA: Interstitial edema has improved. No pneumothorax. ADDITIONAL FINDINGS: No significant additional findings. IMPRESSION: 1. Interval improvement in interstitial edema. 2. Intra-aortic balloon pump projects over the upper aortic arch. Signer Name: Aimee Comer MD Signed: 08/25/2019 3:29 AM Workstation Name: [id number]
[2019-08-25] MEDS ORDERED: SODIUM CHLORIDE 0.9% 250ML 250 ML ONE (06:45)
[2019-08-25 06:46] LABS: Calcium 7.6 mg/dL (8.4-10.2); Creatine Kinase MB 172.8 ng/mL (0.0-4.0)
[2019-08-25 06:46] LABS: Basophils # (Auto) 0.1 K/mm3 (0.0-0.1); Basophils % (Auto) 0.5 % (0.0-1.8); Eosinophils % (Auto) 0.3 % (0.0-4.3); Hematocrit 25.2 % (35.5-45.6); Lymphocytes # (Auto) 1.1 K/mm3 (1.2-5.4); Lymphocytes % (Auto) 7.1 % (13.4-35.0); Mean Corpuscular HGB Conc 32 % (32-34); Mean Corpuscular Volume 77 fl (84-94); Monocytes # (Auto) 1.4 K/mm3 (0.0-0.8); Monocytes % (Auto) 8.9 % (0.0-7.3); Platelet Count 151 K/mm3 (140-440); Red Blood Count 3.28 M/mm3 (3.65-5.03); Red Cell Distribution Width 16.3 % (13.2-15.2)
[2019-08-25] MEDS: NORepinephrine/NS 4 MG-250 ML 4 MG/250 ML BAG IV SCH ×4 (07:04→17:39)
--- NOTE | 2019-08-25 08:05 | Progress Note ---
Assessment and Plan Assessment and plan: --Acute Anterior STEMI:s/p emergency cardiac catheterization s/pt PCI to LAD, Aspirin and Plavix Continue heparin and nitroglycerin drip Intra-aortic balloon pump placed Cardiology following --Cardiogenic shock Levophed, intra-aortic balloon pump --Acute systolic congestive heart failure EF 25% on echocardiogram Hold diuretics and antihypertensives Patient in cardiogenic shock --History of CAD;Status post cardiac stents 3 Hold beta blockers Sotero inhibitors --Acute Kidney injury; probably due to shock ,vasomotor nephropathy Gentle hydration, monitor renal function, avoid nephrotoxins Nephrology consultation --Hyperlipidemia:Continue statin --Obesity with BMI of 34 Lifestyle modification weight reduction when medically stable --GI prophylaxis with Pepcid --DVT prophylaxis ;on heparin drip Monitor closely and adjust the management as needed. Follow consultants recommendations. Plan of care reviewed with the nurse, the patient and the family member at the bed side. Critical care time 35 minutes History Interval history: Patient seen and examined medical records reviewed Patient is in mild distress, on nitroglycerin, heparin, levo fed And dopamine drip which was discontinued this morning Patient denies chest pain or shortness of breath Vital Signs reviewed Hospitalist Physical - Constitutional Vitals: Temp Pulse Resp BP Pulse Ox 97.8 F 80 24 90/42 100 08/25/19 04:00 08/25/19 07:40 08/25/19 07:40 08/25/19 07:40 08/25/19 07:40 General appearance: Present: mild distress, well-nourished, obese - EENT Eyes: Present: PERRL, EOM intact - Neck Neck: Present: supple, normal ROM - Respiratory Respiratory effort: normal Respiratory: bilateral: diminished, negative: rales, rhonchi, wheezing - Cardiovascular Rhythm: regular Heart Sounds: Present: S1 & S2 - Extremities Extremities: no ischemia, No edema - Abdominal General gastrointestinal: soft, non-tender, non-distended, normal bowel sounds - Integumentary Integumentary: Present: clear, warm - Psychiatric Psychiatric: appropriate mood/affect, cooperative - Neurologic Neurologic: moves all extremities Results - Labs CBC & Chem 7: 08/25/19 Unknown 08/25/19 04:00 Labs: Laboratory Last Values WBC 15.3 K/mm3 (4.5-11.0) H 08/25/19 Unknown RBC 3.28 M/mm3 (3.65-5.03) L 08/25/19 Unknown Hgb 8.0 gm/dl (11.8-15.2) L 08/25/19 Unknown Hct 25.2 % (35.5-45.6) L 08/25/19 Unknown MCV 77 fl (84-94) L 08/25/19 Unknown MCH 25 pg (28-32) L 08/25/19 Unknown MCHC 32 % (32-34) 08/25/19 Unknown RDW 16.3 % (13.2-15.2) H 08/25/19 Unknown Plt Count 151 K/mm3 (140-440) 08/25/19 Unknown Lymph % (Auto) 7.1 % (13.4-35.0) L 08/25/19 Unknown [place] % (Auto) 8.9 % (0.0-7.3) H 08/25/19 Unknown Eos % (Auto) 0.3 % (0.0-4.3) 08/25/19 Unknown Baso % (Auto) 0.5 % (0.0-1.8) 08/25/19 Unknown Lymph # 1.1 K/mm3 (1.2-5.4) L 08/25/19 Unknown [place] # 1.4 K/mm3 (0.0-0.8) H 08/25/19 Unknown Eos # 0.0 K/mm3 (0.0-0.4) 08/25/19 Unknown Baso # 0.1 K/mm3 (0.0-0.1) 08/25/19 Unknown Add Manual Diff Complete 08/24/19 Unknown Total Counted 100 08/24/19 Unknown Seg Neutrophils % 83.2 % (40.0-70.0) H 08/25/19 Unknown Seg Neuts % (Manual) 89.0 % (40.0-70.0) H 08/24/19 Unknown Band Neutrophils % 0 % 08/24/19 Unknown Lymphocytes % (Manual) 8.0 % (13.4-35.0) L 08/24/19 Unknown Reactive Lymphs % (Man) 0 % 08/24/19 Unknown Monocytes % (Manual) 3.0 % (0.0-7.3) 08/24/19 Unknown Eosinophils % (Manual) 0 % (0.0-4.3) 08/24/19 Unknown Basophils % (Manual) 0 % (0.0-1.8) 08/24/19 Unknown Metamyelocytes % 0 % 08/24/19 Unknown Myelocytes % 0 % 08/24/19 Unknown Promyelocytes % 0 % 08/24/19 Unknown Blast Cells % 0 % 08/24/19 Unknown Nucleated RBC % Not Reportable 08/24/19 Unknown Seg Neutrophils # 12.7 K/mm3 (1.8-7.7) H 08/25/19 Unknown Seg Neutrophils # Man 9.3 K/mm3 (1.8-7.7) H 08/24/19 Unknown Band Neutrophils # 0.0 K/mm3 08/24/19 Unknown Lymphocytes # (Manual) 0.8 K/mm3 (1.2-5.4) L 08/24/19 Unknown Abs React Lymphs (Man) 0.0 K/mm3 08/24/19 Unknown Monocytes # (Manual) 0.3 K/mm3 (0.0-0.8) 08/24/19 Unknown Eosinophils # (Manual) 0.0 K/mm3 (0.0-0.4) 08/24/19 Unknown Basophils # (Manual) 0.0 K/mm3 (0.0-0.1) 08/24/19 Unknown Metamyelocytes # 0.0 K/mm3 08/24/19 Unknown Myelocytes # 0.0 K/mm3 08/24/19 Unknown Promyelocytes # 0.0 K/mm3 08/24/19 Unknown Blast Cells # 0.0 K/mm3 08/24/19 Unknown WBC Morphology Not Reportable 08/24/19 Unknown Hypersegmented Neuts Not Reportable 08/24/19 Unknown Hyposegmented Neuts Not Reportable 08/24/19 Unknown Hypogranular Neuts Not Reportable 08/24/19 Unknown Smudge Cells Not Reportable 08/24/19 Unknown Toxic Granulation Not Reportable 08/24/19 Unknown Toxic Vacuolation Not Reportable 08/24/19 Unknown Dohle Bodies Not Reportable 08/24/19 Unknown Pelger-Huet Anomaly Not Reportable 08/24/19 Unknown Trevor Rods Not Reportable 08/24/19 Unknown Platelet Estimate Not Reportable 08/24/19 Unknown Clumped Platelets Not Reportable 08/24/19 Unknown Plt Clumps, EDTA Not Reportable 08/24/19 Unknown Large Platelets Not Reportable 08/24/19 Unknown Giant Platelets Not Reportable 08/24/19 Unknown Platelet Satelliting Not Reportable 08/24/19 Unknown Plt Morphology Comment Not Reportable 08/24/19 Unknown RBC Morphology Not Reportable 08/24/19 Unknown Dimorphic RBCs Not Reportable 08/24/19 Unknown Polychromasia Not Reportable 08/24/19 Unknown Hypochromasia 1+ 08/24/19 Unknown Poikilocytosis Not Reportable 08/24/19 Unknown Anisocytosis Not Reportable 08/24/19 Unknown Microcytosis Not Reportable 08/24/19 Unknown Macrocytosis Not Reportable 08/24/19 Unknown Spherocytes Not Reportable 08/24/19 Unknown Pappenheimer Bodies Not Reportable 08/24/19 Unknown Sickle Cells Not Reportable 08/24/19 Unknown Target Cells Not Reportable 08/24/19 Unknown Tear Drop Cells Not Reportable 08/24/19 Unknown Ovalocytes Not Reportable 08/24/19 Unknown Helmet Cells Not Reportable 08/24/19 Unknown [place] Bodies Not Reportable 08/24/19 Unknown [place] Rings Not Reportable 08/24/19 Unknown Megan Cells Not Reportable 08/24/19 Unknown Bite Cells Not Reportable 08/24/19 Unknown Crenated Cell Not Reportable 08/24/19 Unknown Elliptocytes Not Reportable 08/24/19 Unknown Acanthocytes (Spur) Not Reportable 08/24/19 Unknown Rouleaux Not Reportable 08/24/19 Unknown Hemoglobin C Crystals Not Reportable 08/24/19 Unknown Schistocytes Not Reportable 08/24/19 Unknown Malaria parasites Not Reportable 08/24/19 Unknown Amarjit Bodies Not Reportable 08/24/19 Unknown Hem Pathologist Commnt No 08/24/19 Unknown PT 17.2 Sec. (12.2-14.9) H 08/24/19 07:07 INR 1.44 (0.87-1.13) H 08/24/19 07:07 APTT 25.2 Sec. (24.2-36.6) 08/24/19 07:07 Heparin Anti-Xa Level 0.64 U.I./ml (0.3-0.7) 08/24/19 22:42 Sodium 138 mmol/L (137-145) 08/25/19 04:00 Potassium 5.0 mmol/L (3.6-5.0) D 08/25/19 04:00 Chloride 103.5 mmol/L (98-107) 08/25/19 04:00 Carbon Dioxide 18 mmol/L (22-30) L 08/25/19 04:00 Anion Gap 22 mmol/L 08/25/19 04:00 BUN 28 mg/dL (9-20) H 08/25/19 04:00 Creatinine 1.8 mg/dL (0.8-1.5) H D 08/25/19 04:00 Estimated GFR 44 ml/min 08/25/19 04:00 BUN/Creatinine Ratio 16 % 08/25/19 04:00 Glucose 150 mg/dL (75-100) H 08/25/19 04:00 Calcium 7.6 mg/dL (8.4-10.2) L 08/25/19 04:00 Magnesium 2.30 mg/dL (1.7-2.3) 08/25/19 04:15 Total Bilirubin 0.40 mg/dL (0.1-1.2) 08/24/19 Unknown AST 43 units/L (5-40) H 08/24/19 Unknown ALT 22 units/L (7-56) 08/24/19 Unknown Alkaline Phosphatase 55 units/L (35-129) 08/24/19 Unknown Total Creatine Kinase 4976 units/L (55-170) H 08/25/19 04:00 CK-MB (CK-2) 172.8 ng/mL (0.0-4.0) H 08/25/19 04:00 CK-MB (CK-2) Rel Index 3.4 (0-4) 08/25/19 04:00 Troponin T 14.590 ng/mL (0.00-0.029) H* D 08/25/19 04:00 NT-Pro-B Natriuret Pep 158.4 pg/mL (0-900) 08/24/19 01:11 Total Protein 7.0 g/dL (6.3-8.2) 08/24/19 Unknown Albumin 3.7 g/dL (3.9-5) L 08/24/19 Unknown Albumin/Globulin Ratio 1.1 % 08/24/19 Unknown Triglycerides 92 mg/dL (2-149) 08/24/19 05:44 Cholesterol 168 mg/dL (50-199) 08/24/19 05:44 LDL Cholesterol Direct 118 mg/dL (50-130) 08/24/19 05:44 HDL Cholesterol 40 mg/dL (40-59) 08/24/19 05:44 Cholesterol/HDL Ratio 4.20 % 08/24/19 05:44 Active Medications - Current Medications Current Medications: Generic Name Dose Route Start Last Admin Trade Name Freq PRN Reason Stop Dose Admin Acetaminophen 650 mg 08/24/19 03:12 Tylenol PO Q4H PRN Pain MILD(1-3)/Fever >100.5/JAMIL Aspirin 325 mg 08/24/19 10:00 08/24/19 09:47 Ecotrin PO 325 mg QDAY JAKE Administration Atorvastatin Calcium 80 mg 08/24/19 22:00 08/24/19 21:43 Lipitor PO 80 mg QHS JAKE Administration Clopidogrel Bisulfate 75 mg 08/25/19 10:00 Plavix PO QDAY JAKE Docusate Sodium 100 mg 08/24/19 10:00 08/24/19 21:43 Colace PO 100 mg BID JAKE Administration Famotidine 10 mg 08/24/19 10:00 08/24/19 21:43 Pepcid PO 10 mg BID JAKE Administration Furosemide 40 mg 08/24/19 10:00 08/24/19 13:34 Lasix IV 40 mg DAILY JAKE Administration Dopamine HCl/Dextrose 800 mg in 250 mls @ 4.519 mls/hr 08/24/19 03:11 0 08/24/19 04:40 Intropin Drip 800 Mg/D5w 250 Ml IV 08/26/19 10:30 10 mcg/kg/min TITR ONE 22.594 mls/hr Titration Protocol 2 MCG/KG/MIN Nitroglycerin/Dextrose 50 mg in 250 mls @ 3 mls/hr 08/24/19 04:00 08/24/19 04:40 Tridil Drip 50mg/250ml IV 10 mcg/min TITR JAKE 3 mls/hr Titration Protocol 10 MCG/MIN Heparin Sodium/Sodium Chloride 25,000 unit in 500 mls @ 20 mls/hr 08/24/19 07:00 08/24/19 23:57 Heparin/ 0.45% Nacl-25,000 Unit/500 Ml IV 1,000 units/hr TITRATE JAKE 20 mls/hr Titration Protocol 1,000 UNITS/HR Norepinephrine 4 mg in 250 mls @ 7.5 mls/hr 08/24/19 08:00 08/25/19 07:17 Levophed Drip 4 Mg/Ns 250 Ml IV 10 mcg/min TITR JAKE 37.5 mls/hr Titration Protocol 2 MCG/MIN Lisinopril 2.5 mg 08/24/19 10:00 08/24/19 13:04 Zestril PO Not Given QDAY [facility] Metoprolol Tartrate 50 mg 08/24/19 10:00 08/24/19 21:47 Lopressor PO Not Given BID [facility] Morphine Sulfate 2 mg 08/24/19 03:12 08/24/19 07:24 Morphine IV 2 mg Q4H PRN Administration Pain , Severe (7-10) Ondansetron HCl 4 mg 08/24/19 03:12 08/24/19 05:33 Zofran IV 4 mg Q8H PRN Administration Nausea And Vomiting Oxycodone/Acetaminophen 1 tab 08/24/19 03:12 Percocet 5/325 PO Q6H PRN Pain, Moderate (4-6) Sodium Chloride 10 ml 08/24/19 10:00 08/25/19 01:46 Sodium Chloride Flush Syringe 10 Ml IV 10 ml BID JAKE Administration Sodium Chloride 10 ml 08/24/19 03:12 Sodium Chloride Flush Syringe 10 Ml IV PRN PRN LINE FLUSH
[2019-08-25] MEDS ORDERED: CLOPIDOGREL 75 MG TAB PO SCH (10:00)
[2019-08-25] MEDS: ASPIRIN EC 325 MG TAB PO SCH (10:01)
[2019-08-25] MEDS: FUROSEMIDE 40 MG/4 ML INJ IV SCH (10:01)
[2019-08-25] MEDS: DOCUSATE SODIUM 100 MG CAP PO SCH (10:01)
[2019-08-25] MEDS: FAMOTIDINE 10 MG TAB PO SCH (10:01)
[2019-08-25] MEDS: METOPROLOL TARTRATE 50 MG TAB PO SCH (10:02)
[2019-08-25] MEDS: LISINOPRIL 5 MG TAB PO SCH (10:02)
--- NOTE | 2019-08-25 11:34 | Progress Note ---
Assessment and Plan 79yo male: 1. Acute anterior STEMI * s/p primary pci with jignesh to lad * iabp placed * iv heparin, dapt * ef ~ 25% (tte) * remains borderline hypotensive on levo, IABP * on fci anticoagulation due coronary ectasia 2. Anemia 3. 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 seen in icu family at bedside Objective Vital Signs Temp Pulse Pulse Resp Resp BP Pulse Ox 08/25/19 10:40 86 16 92/47 100 08/25/19 10:30 81 14 92/47 100 08/25/19 10:20 79 18 83/47 100 08/25/19 10:10 81 14 85/14 100 08/25/19 10:02 79 96/44 08/25/19 10:00 82 24 85/14 08/25/19 09:50 80 23 109/52 100 08/25/19 09:40 79 25 H 98/48 08/25/19 09:30 81 19 89/53 100 08/25/19 09:20 83 19 99/46 100 08/25/19 09:10 82 22 93/50 100 08/25/19 09:00 83 20 95/49 99 08/25/19 08:50 79 18 98/48 08/25/19 08:40 82 24 97/42 100 08/25/19 08:30 78 21 97/42 100 08/25/19 08:20 81 14 93/50 100 08/25/19 08:10 76 18 95/50 99 08/25/19 08:00 99.9 F H 78 77 21 95/50 100 08/25/19 07:50 78 25 H 98/42 100 08/25/19 07:40 80 24 90/42 100 08/25/19 07:30 79 23 90/42 100 08/25/19 07:20 83 27 H 92/46 100 08/25/19 07:10 78 23 97/50 100 08/25/19 07:00 79 19 97/50 99 08/25/19 06:50 78 22 106/41 100 08/25/19 06:40 77 25 H 110/45 98 08/25/19 06:30 78 16 110/45 100 08/25/19 06:20 75 24 95/53 100 08/25/19 06:10 75 21 109/53 100 08/25/19 06:00 74 80 22 109/53 100 08/25/19 05:50 73 23 103/55 100 08/25/19 05:40 72 17 98/30 100 08/25/19 05:30 73 14 98/30 100 08/25/19 05:20 78 18 103/39 100 08/25/19 05:10 75 24 109/39 100 08/25/19 05:00 72 20 109/39 96 08/25/19 04:50 79 12 90/39 100 08/25/19 04:40 77 17 46/29 100 08/25/19 04:30 77 17 120/39 100 08/25/19 04:20 76 23 119/38 100 08/25/19 04:10 76 13 120/39 100 08/25/19 04:00 97.8 F 72 73 22 120/39 100 08/25/19 03:50 76 15 108/75 100 08/25/19 03:40 79 21 08/25/19 03:30 73 21 108/75 100 08/25/19 03:20 74 24 108/75 100 08/25/19 03:11 76 25 H 120/45 100 08/25/19 03:01 77 20 98/69 100 08/25/19 02:51 77 18 120/45 100 08/25/19 02:41 74 73 16 117/44 100 08/25/19 02:31 75 16 117/44 100 08/25/19 02:21 75 15 111/46 100 08/25/19 02:11 72 21 105/46 100 08/25/19 02:01 72 24 115/44 100 08/25/19 01:51 72 21 105/46 99 08/25/19 01:41 74 19 109/45 100 08/25/19 01:31 74 19 109/45 100 08/25/19 01:21 76 13 121/46 100 08/25/19 01:11 73 21 113/52 100 08/25/19 01:00 73 17 113/52 100 08/25/19 00:51 74 18 98/41 100 08/25/19 00:41 74 22 122/43 100 08/25/19 00:31 73 17 122/43 100 08/25/19 00:21 72 15 108/48 100 08/25/19 00:13 73 17 101/44 100 08/25/19 00:11 72 19 101/44 100 08/25/19 00:00 97.5 F L 72 73 16 101/44 100 08/24/19 23:51 74 19 91/46 100 08/24/19 23:41 79 16 117/45 100 08/24/19 23:31 72 21 117/45 100 08/24/19 23:21 71 15 107/44 100 08/24/19 23:11 75 18 120/47 100 08/24/19 23:01 74 23 120/47 100 08/24/19 22:51 74 21 110/48 100 08/24/19 22:41 75 25 H 128/50 100 08/24/19 22:30 77 20 128/50 100 08/24/19 22:21 76 22 103/45 99 08/24/19 22:11 73 18 112/44 100 08/24/19 22:01 74 22 97/61 100 08/24/19 22:00 75 74 18 100 08/24/19 21:51 72 19 97/61 100 08/24/19 21:47 73 97/61 08/24/19 21:41 74 12 108/58 100 08/24/19 21:31 74 19 108/58 98 08/24/19 21:21 75 17 92/49 100 08/24/19 21:11 76 16 113/55 99 08/24/19 21:01 78 10 L 113/55 100 08/24/19 20:51 74 20 118/46 99 08/24/19 20:46 100 08/24/19 20:41 73 21 115/50 100 08/24/19 20:31 19 115/50 100 08/24/19 20:21 14 113/48 100 08/24/19 20:10 17 110/51 100 08/24/19 20:01 74 16 118/52 100 08/24/19 20:00 97.5 F L 76 18 100 08/24/19 19:51 75 19 111/47 98 08/24/19 19:41 74 17 103/55 100 08/24/19 19:31 72 14 103/55 100 08/24/19 19:21 70 14 97/64 100 08/24/19 19:11 74 16 103/58 100 08/24/19 19:01 73 18 103/58 100 08/24/19 18:51 75 16 108/57 100 08/24/19 18:41 72 14 108/50 100 08/24/19 18:30 75 15 108/50 96 08/24/19 18:21 77 13 102/53 99 08/24/19 18:11 79 19 110/69 99 08/24/19 18:01 74 14 110/51 100 08/24/19 18:00 82 16 100 08/24/19 17:51 78 15 110/51 98 08/24/19 17:41 74 17 118/49 98 08/24/19 17:31 78 15 118/49 100 08/24/19 17:20 85 17 110/51 100 08/24/19 17:11 79 13 117/50 100 08/24/19 17:01 80 20 117/50 100 08/24/19 16:51 76 17 112/60 99 08/24/19 16:41 78 17 123/51 99 08/24/19 16:31 81 15 123/51 100 08/24/19 16:21 80 14 109/54 99 08/24/19 16:11 78 13 117/58 99 08/24/19 16:01 81 12 96/75 100 08/24/19 16:00 98.1 F 85 20 16 100 08/24/19 15:51 77 15 96/75 99 08/24/19 15:41 79 12 112/59 99 08/24/19 15:31 79 15 112/59 94 08/24/19 15:21 83 16 103/69 100 08/24/19 15:11 79 19 121/70 100 08/24/19 15:01 73 14 121/70 99 08/24/19 14:51 81 16 125/66 08/24/19 14:41 82 18 120/57 100 08/24/19 14:31 79 17 120/57 99 08/24/19 14:21 74 20 140/78 08/24/19 14:11 80 15 122/55 99 08/24/19 14:01 77 14 122/55 08/24/19 14:00 78 11 L 100 08/24/19 13:51 77 16 134/68 100 08/24/19 13:41 74 20 116/70 99 08/24/19 13:31 74 13 125/60 98 08/24/19 13:21 76 17 125/60 100 08/24/19 13:11 74 15 106/71 08/24/19 13:04 73 96/47 08/24/19 13:02 72 96/48 08/24/19 13:01 75 15 106/71 08/24/19 12:51 72 14 131/52 08/24/19 12:41 73 15 122/61 08/24/19 12:31 74 18 122/61 08/24/19 12:21 75 20 127/56 08/24/19 12:11 74 15 123/63 08/24/19 12:01 79 17 123/63 99 08/24/19 12:00 97.7 F 79 79 16 123/68 99 08/24/19 11:51 74 19 124/58 98 08/24/19 11:41 76 20 130/60 97 08/24/19 11:31 74 18 130/60 98 - Labs and Meds Cardiac Enzymes 08/25/19 Range/Units 04:00 CK-MB (CK-2) 172.8 H (0.0-4.0) ng/mL CBC 08/24/19 08/25/19 Range/Units 15:24 Unknown WBC 15.3 H (4.5-11.0) K/mm3 RBC 3.28 L (3.65-5.03) M/mm3 Hgb 9.4 L 8.0 L (11.8-15.2) gm/dl Hct 30.6 L 25.2 L (35.5-45.6) % Plt Count 166 151 (140-440) K/mm3 Lymph # 1.1 L (1.2-5.4) K/mm3 [place] # 1.4 H (0.0-0.8) K/mm3 Eos # 0.0 (0.0-0.4) K/mm3 Baso # 0.1 (0.0-0.1) K/mm3 Comprehensive Metabolic Panel 08/25/19 Range/Units 04:00 Sodium 138 (137-145) mmol/L Potassium 5.0 D (3.6-5.0) mmol/L Chloride 103.5 (98-107) mmol/L Carbon Dioxide 18 L (22-30) mmol/L BUN 28 H (9-20) mg/dL Creatinine 1.8 H D (0.8-1.5) mg/dL Glucose 150 H (75-100) mg/dL Calcium 7.6 L (8.4-10.2) mg/dL
--- NOTE | 2019-08-25 13:49 | Event Note ---
Date: 08/25/19 Pt to be tx to [facility] where Dr. Reinoso will accept for further eval/management. D/w pt's family. D/w primary RN and Dr. Hickman. Ashlee MARTINEZ NP / DR. Andreina QUINTEROS
--- NOTE | 2019-08-25 16:37 | Consultation ---
History of Present Illness Consult date: 08/25/19 Requesting physician: ALFONSO ALONSO Reason for consult: other (STEMI, Cardiogenic shock) History of present illness: 79 yo with known CAD s/p PCI. He was recently discharged after LGIB. Per chart he developed chest pain acutely prior to presenting back to the ED. Chest pain was crushing and substernal. He had ST elevation on EKG. He underwent LHC and PCI was done as per C notes, with BMS. IABP placed for BP support. He is currently on Levophed and Heparin drips. His chest pain has resolved. He denies SOB currently and his nasal cannula is off his face w/ adequate saturations. He denies recent fevers, chills, hemoptysis. He is compliant with CPAP. Past History Past Medical History: CAD, hypertension, hyperlipidemia, other (GI bleed, prostate cancer) Past Surgical History: Other (cardiac stents 3, prostatectomy) Social history: no significant social history (patient denies tobacco, alcohol or illicit drug use), full code. denies: smoking, alcohol abuse, prescription drug abuse, IV drug use Family history: CAD (brother in his 60s) Medications and Allergies Allergies Allergy/AdvReac Type Severity Reaction Status Date / Time No Known Allergies Allergy Verified 05/09/17 04:07 Home Medications Medication Instructions Recorded Confirmed Last Taken Type Warfarin [Coumadin] 5 mg PO QDAY 05/09/17 08/24/19 08/19/19 History Warfarin [Coumadin] 10 mg PO QDAY 05/09/17 08/24/19 08/20/19 History Aspirin 81 mg PO DAILY #30 tab.chew 05/11/17 08/24/19 08/20/19 Rx Famotidine [Pepcid] 20 mg PO QDAY #30 tablet 05/11/17 08/24/19 08/13/19 Rx Lisinopril/Hydrochlorothiazide 1 each PO QDAY 08/21/19 08/24/19 08/20/19 History [Zestoretic 10-12.5 mg Tablet] Metoprolol [Lopressor TAB] 25 mg PO QDAY 08/21/19 08/24/19 08/20/19 History Lovastatin (Nf) [Mevacor (Nf)] 20 mg PO DAILY 08/22/19 08/24/19 08/20/19 History 20 mg Active Meds: Active Medications Acetaminophen (Tylenol) 650 mg PO Q4H PRN PRN Reason: Pain MILD(1-3)/Fever >100.5/JAMIL Aspirin (Ecotrin) 325 mg PO QDAY PENDING SALE TO [facility] Last Admin: 08/25/19 10:01 Dose: 325 mg Documented by: Atorvastatin Calcium (Lipitor) 80 mg PO QHS PENDING SALE TO [facility] Last Admin: 08/24/19 21:43 Dose: 80 mg Documented by: Clopidogrel Bisulfate (Plavix) 75 mg PO QDAY PENDING SALE TO [facility] Last Admin: 08/25/19 10:00 Dose: 75 mg Documented by: Docusate Sodium (Colace) 100 mg PO BID PENDING SALE TO [facility] Last Admin: 08/25/19 10:01 Dose: 100 mg Documented by: Famotidine (Pepcid) 10 mg PO BID PENDING SALE TO [facility] Last Admin: 08/25/19 10:01 Dose: 10 mg Documented by: Dopamine HCl/Dextrose (Intropin Drip 800 Mg/D5w 250 Ml) 800 mg in 250 mls @ 4.519 mls/hr IV TITR ONE; Protocol Stop: 08/26/19 10:30 Last Titration: 08/25/19 07:00 Dose: Infused Documented by: Nitroglycerin/Dextrose (Tridil Drip 50mg/250ml) 50 mg in 250 mls @ 3 mls/hr IV TITR PENDING SALE TO [facility]; Protocol Last Titration: 08/25/19 07:00 Dose: 0 mcg/min, 0 mls/hr Documented by: Heparin Sodium/Sodium Chloride (Heparin/ 0.45% Nacl-25,000 Unit/500 Ml) 25,000 unit in 500 mls @ 20 mls/hr IV TITRATE PENDING SALE TO [facility]; Protocol Last Titration: 08/24/19 23:57 Dose: 1,000 units/hr, 20 mls/hr Documented by: Norepinephrine (Levophed Drip 4 Mg/Ns 250 Ml) 4 mg in 250 mls @ 7.5 mls/hr IV TITR PENDING SALE TO [facility]; Protocol Last Titration: 08/25/19 12:45 Dose: 16 mcg/min, 60 mls/hr Documented by: Lisinopril (Zestril) 2.5 mg PO QDAY PENDING SALE TO [facility] Last Admin: 08/25/19 10:02 Dose: Not Given Documented by: Metoprolol Tartrate (Lopressor) 50 mg PO BID PENDING SALE TO [facility] Last Admin: 08/25/19 10:02 Dose: Not Given Documented by: Morphine Sulfate (Morphine) 2 mg IV Q4H PRN PRN Reason: Pain , Severe (7-10) Last Admin: 08/24/19 07:24 Dose: 2 mg Documented by: Ondansetron HCl (Zofran) 4 mg IV Q8H PRN PRN Reason: Nausea And Vomiting Last Admin: 08/24/19 05:33 Dose: 4 mg Documented by: Oxycodone/Acetaminophen (Percocet 5/325) 1 tab PO Q6H PRN PRN Reason: Pain, Moderate (4-6) Sodium Chloride (Sodium Chloride Flush Syringe 10 Ml) 10 ml IV BID PENDING SALE TO [facility] Last Admin: 08/25/19 10:01 Dose: 10 ml Documented by: Sodium Chloride (Sodium Chloride Flush Syringe 10 Ml) 10 ml IV PRN PRN PRN Reason: LINE FLUSH Review of Systems All systems: negative Physical Examination Vital signs: Vital Signs Temp Pulse Resp BP Pulse Ox 98.2 F 70 17 93/59 99 08/24/19 01:06 08/24/19 01:06 08/24/19 01:06 08/24/19 01:06 08/24/19 01:06 Vital Signs - 24 hr 08/25/19 08/25/19 08/25/19 12:40 12:50 13:00 Temperature Pulse Rate 90 92 H 89 Respiratory 18 13 16 Rate Blood Pressure 86/45 86/45 93/45 O2 Sat by Pulse 99 97 99 Oximetry 08/25/19 08/25/19 08/25/19 13:10 13:20 13:30 Temperature Pulse Rate 90 89 86 Respiratory 20 16 28 H Rate Blood Pressure 93/45 91/64 106/52 O2 Sat by Pulse 100 99 98 Oximetry 08/25/19 08/25/19 08/25/19 13:40 13:50 14:00 Temperature Pulse Rate 94 H 93 H 92 H Respiratory 16 21 20 Rate Blood Pressure 93/45 102/47 96/51 O2 Sat by Pulse 98 98 99 Oximetry 08/25/19 08/25/19 08/25/19 14:10 14:20 14:30 Temperature Pulse Rate 92 H 93 H 93 H Respiratory 22 22 18 Rate Blood Pressure 106/52 92/39 111/39 O2 Sat by Pulse 100 100 100 Oximetry 08/25/19 08/25/19 08/25/19 14:40 14:50 15:00 Temperature Pulse Rate 99 H 90 94 H Respiratory 20 17 17 Rate Blood Pressure 111/39 109/40 114/47 O2 Sat by Pulse 100 99 100 Oximetry 08/25/19 08/25/19 08/25/19 15:10 15:20 15:30 Temperature Pulse Rate 95 H 97 H 95 H Respiratory 22 29 H 21 Rate Blood Pressure 114/47 111/37 111/70 O2 Sat by Pulse 100 100 Oximetry 08/25/19 08/25/19 08/25/19 15:40 15:50 16:00 Temperature 98.1 F Pulse Rate 100 H 95 H 98 H Respiratory 13 23 19 Rate Blood Pressure 111/70 120/48 112/53 O2 Sat by Pulse 100 98 100 Oximetry 08/25/19 08/25/19 08/25/19 16:10 16:20 16:30 Temperature Pulse Rate 96 H 103 H 98 H Respiratory 17 15 17 Rate Blood Pressure 112/53 125/99 125/99 O2 Sat by Pulse 100 100 100 Oximetry 08/25/19 08/25/19 08/25/19 16:40 16:50 17:00 Temperature Pulse Rate 92 H 102 H 96 H Respiratory 25 H 16 17 Rate Blood Pressure 125/99 125/55 125/55 O2 Sat by Pulse 100 91 100 Oximetry 08/25/19 08/25/19 08/25/19 17:10 17:20 17:30 Temperature Pulse Rate 102 H 98 H Respiratory 15 14 22 Rate Blood Pressure 119/26 111/83 111/83 O2 Sat by Pulse 93 100 Oximetry 08/25/19 08/25/19 17:40 17:50 Temperature Pulse Rate Respiratory Rate Blood Pressure 111/83 138/109 O2 Sat by Pulse Oximetry General appearance: other (awake, alert, critically ill on pressors) Eyes: non-icteric ENT: oropharynx moist Neck: supple Effort: normal Cardiovascular: regular rate and rhythm Gastrointestinal: normoactive bowel sounds, soft, non-tender, non-distended Integumentary: normal Extremities: no cyanosis, no edema, pink and warm normal mental status, non-focal exam, pupils equal and round, CN II-XII normal mood appropriate, affect normal Results - Laboratory Findings CBC and BMP: 08/25/19 Unknown 08/25/19 04:00 PT/INR, D-dimer PT 17.2 Sec. (12.2-14.9) H 08/24/19 07:07 INR 1.44 (0.87-1.13) H 08/24/19 07:07 Abnormal lab findings: Abnormal Labs 08/24/19 08/24/19 08/24/19 01:11 01:11 01:11 WBC RBC Hgb 10.6 L Hct 33.6 L MCV 77 L MCH 25 L RDW 16.4 H Lymph % (Auto) 40.7 H Moffat % (Auto) Lymph # Moffat # Seg Neutrophils % Seg Neuts % (Manual) Lymphocytes % (Manual) Seg Neutrophils # Seg Neutrophils # Man Lymphocytes # (Manual) PT 16.7 H INR 1.39 H APTT 22.4 L Activated Clotting Time Sodium Carbon Dioxide BUN Creatinine Glucose 148 H Calcium 8.2 L AST Total Creatine Kinase 358 H CK-MB (CK-2) Troponin T Albumin 08/24/19 08/24/19 08/24/19 05:44 07:07 07:07 WBC RBC Hgb 9.8 L Hct 30.9 L MCV MCH RDW Lymph % (Auto) Moffat % (Auto) Lymph # Moffat # Seg Neutrophils % Seg Neuts % (Manual) Lymphocytes % (Manual) Seg Neutrophils # Seg Neutrophils # Man Lymphocytes # (Manual) PT 17.2 H INR 1.44 H APTT Activated Clotting Time Sodium Carbon Dioxide BUN Creatinine Glucose Calcium AST Total Creatine Kinase CK-MB (CK-2) Troponin T 0.177 H* D Albumin 08/24/19 08/24/19 08/24/19 09:29 15:24 Unknown WBC RBC Hgb 9.4 L 10.6 L Hct 30.6 L 32.9 L MCV 77 L MCH 25 L RDW 16.1 H Lymph % (Auto) Moffat % (Auto) Lymph # Moffat # Seg Neutrophils % Seg Neuts % (Manual) 89.0 H Lymphocytes % (Manual) 8.0 L Seg Neutrophils # Seg Neutrophils # Man 9.3 H Lymphocytes # (Manual) 0.8 L PT INR APTT Activated Clotting Time 191 H Sodium Carbon Dioxide BUN Creatinine Glucose Calcium AST Total Creatine Kinase CK-MB (CK-2) Troponin T Albumin 08/24/19 08/25/19 08/25/19 Unknown 04:00 Unknown WBC 15.3 H RBC 3.28 L Hgb 8.0 L Hct 25.2 L MCV 77 L MCH 25 L RDW 16.3 H Lymph % (Auto) 7.1 L Moffat % (Auto) 8.9 H Lymph # 1.1 L Moffat # 1.4 H Seg Neutrophils % 83.2 H Seg Neuts % (Manual) Lymphocytes % (Manual) Seg Neutrophils # 12.7 H Seg Neutrophils # Man Lymphocytes # (Manual) PT INR APTT Activated Clotting Time Sodium 136 L Carbon Dioxide 20 L 18 L BUN 28 H Creatinine 1.8 H D Glucose 166 H 150 H Calcium 8.2 L 7.6 L AST 43 H Total Creatine Kinase 4976 H CK-MB (CK-2) 172.8 H Troponin T 14.590 H* D Albumin 3.7 L - Diagnostic Findings Chest x-ray: report reviewed, image reviewed (+ pulm edema, better compared to initial CXR) Assessment and Plan Imp: 1. STEMI 2. Cardiogenic shock 3. Pulmonary edema/acute systolic CHF 4. ICMP 5. CAD 6. KIMBERLYN 7. TROY Rec: 1. CPAP at +15 cmH2O QHS (home pressure) 2. Stop Lasix and ACEI; monitor renal function 3. Levophed to keep MAP > 65; PICC to be placed today 4. Heparin drip; holding Coumadin; no further GI bleeding noted; monitor H/H 5. Respiratory status stable; will monitor closely 6. Further plans re: IABP and dispo per cardiology, see notes Plan of care reviewed w/ patient, he understands/agrees CCT 31 minutes
[2019-08-25] MEDS: HEPARIN/ 0.45% NACL DRIP 25,000 UNIT/500 ML BAG IV SCH (17:00)
--- NOTE | 2019-08-25 18:09 | Discharge Summary ---
Providers - Providers Date of Admission: 08/24/19 03:12 Date of discharge: 08/25/19 Attending physician: ALFONSO ALONSO 08/24/19 03:24 Consult to Cardiology [CONS] Routine Consulting Provider: RAQUEL PISANO Reason For Exam: UNSTABLE ANGINA 08/24/19 11:52 Consult to Physician [CONS] Routine Comment: Consulting Provider: REGGIE SINCLAIR Physician Instructions: Reason For Exam: STEMI/Cr Care consult 08/25/19 12:04 Consult to PICC Line RN [CONS] Stat Reason For Exam: patient on levophed Type Line:: PICC Primary care physician: ADELIA HOLT MD Hospitalization Reason for admission: Chest Pain/STEMI Condition: Critical Pertinent studies: Cardiac cath CXR CTA chest Echo Procedures: Heart cath IABP Hospital course: 79-year-old male patient with significant past medical history of coronary artery disease status post PCI 3 ,hypertension dyslipidemia,history of GI bleed and prostate cancer was admitted through emergency room with chest pain and possible ST elevation MO. Patient was admitted to ICU , evaluated by cardiology and underwent emergency cardiac cath status post PCI to LAD Patient was in cardiogenic shock had intra-aortic balloon pump placement and on vasopressors, heparin drip. Diuretics ,beta blockers and ACEI were held due to hypotension Patient was also started on dual antiplatelets aspirin and Plavix. Patient remains criticaly ill and vending machine mechanic [ B2B APPOINTMENT SETTER.Ms.Kelly Carney ]recommended to transfer the patient to [facility] for further evaluation and management by vending machine mechanic Dr Reinoso. Diagnosis and management: --Acute Anterior STEMI:s/p emergency cardiac catheterization s/pt PCI to LAD, Aspirin and Plavix Heparin and nitroglycerin drips Intra-aortic balloon pump placed Cardiology following --Cardiogenic shock Levophed, intra-aortic balloon pump --Acute systolic congestive heart failure EF 25% on echocardiogram Hold diuretics and antihypertensives --History of CAD;Status post cardiac stents 3 Hold beta blockers Sotero inhibitors in view of cardiogenic shock. --Acute Kidney injury;vasomotor nephropathy,shock Gentle hydration, monitor renal function, avoid nephrotoxins Nephrology consultation --Hyperlipidemia:Continue statin --Obesity with BMI of 35.4 Lifestyle modification weight reduction when medically stable --GI prophylaxis with Pepcid --DVT prophylaxis ;on heparin drip Patient is critically ill, Maintenance Instructor wants the patient to be transferred to [facility] under the care of Dr. Reinoso, for further evaluation and management. Plan of care discussed with patient's family Discharge and transfer the patient to [place]. Condition upon discharge and transfer Critical and stable for transfer Critical care time 35 minutes Disposition: [id number] ANOTHER TYPE HLTHCARE Time spent for discharge: 35 min Core Measure Documentation - Palliative Care Palliative Care/ Comfort Measures: Not Applicable - Core Measures Any of the following diagnoses?: acute MO, heart failure - Acute MO Discharge Requirements Aspirin at discharge: Yes SOTERO/ARB for LVSD if EF <40%: No Reason for no SOTERO/ARB: Hypotension Beta salvador at discharge: No Reason for no beta salvador on DC: Hypotension Statin for LDL = or >100 mg/dl on DC: Yes - Heart Failure Discharge Requirements SOTERO/ARB for LVSD if EF <40%: No Reason for no SOTERO/ARB: Hypotension Beta salvador at discharge: No Reason for no beta salvador on DC: Hypotension Exam - Constitutional Vitals: Temp Pulse Resp BP Pulse Ox 98.1 F 98 H 26 H 119/26 100 08/25/19 16:00 08/25/19 17:00 08/25/19 17:00 08/25/19 17:00 08/25/19 17:00 General appearance: Present: mild distress, well-nourished, obese - EENT Eyes: Present: PERRL, EOM intact - Neck Neck: Present: supple, normal ROM - Respiratory Respiratory effort: normal Respiratory: bilateral: diminished, negative: rales, rhonchi, wheezing - Cardiovascular Rhythm: regular Heart Sounds: Present: S1 & S2 - Extremities Extremities: no ischemia, No edema - Abdominal General gastrointestinal: Present: soft, non-tender, non-distended, normal bowel sounds - Integumentary Integumentary: Present: clear, warm - Musculoskeletal Musculoskeletal: strength equal bilaterally - Psychiatric Psychiatric: appropriate mood/affect, cooperative - Neurologic Neurologic: moves all extremities Plan Additional Instructions: Maintenance Instructor Dr Everette Perez [B2B APPOINTMENT SETTER Kaia Rommel ] advised to Transfer the patient to [facility] for further evaluation and management. Continue all the current management. Follow up with: BLADIMIR MCFADDEN MD [Referring] - 3-5 Days
[2019-08-25 18:57] VITALS: BP 138/109
== END 2019-08-25 17:55 | disposition short-term general hospital (02) | DRG 270 ==
LOC: ED 00:58 → CC1 03:12
PROVIDERS: ADMIT Internal Medicine; ATTEND Internal Medicine
PROC: 5A02210 Assistance with Cardiac Output using Balloon Pump, Continuous (ICD-10-PCS; principal; 2019-08-24)
PROC: 02703DZ Dilation of Coronary Artery, One Artery with Intraluminal Device, Percutaneous Approach (ICD-10-PCS; 2019-08-24)
PROC: 02703ZZ Dilation of Coronary Artery, One Artery, Percutaneous Approach (ICD-10-PCS; 2019-08-24)
PROC: 4A023N7 Measurement of Cardiac Sampling and Pressure, Left Heart, Percutaneous Approach (ICD-10-PCS; 2019-08-24)
PROC: B2111ZZ Fluoroscopy of Multiple Coronary Arteries using Low Osmolar Contrast (ICD-10-PCS; 2019-08-24)
PROC: 02HV33Z Insertion of Infusion Device into Superior Vena Cava, Percutaneous Approach (ICD-10-PCS; 2019-08-25)
DX: I21.09 ST elevation (STEMI) myocardial infarction involving other coronary artery of anterior wall (principal); R57.0 Cardiogenic shock; N17.0 Acute kidney failure with tubular necrosis; I50.43 Acute on chronic combined systolic (congestive) and diastolic (congestive) heart failure; I11.0 Hypertensive heart disease with heart failure; I25.110 Atherosclerotic heart disease of native coronary artery with unstable angina pectoris; I25.5 Ischemic cardiomyopathy; G47.33 Obstructive sleep apnea (adult) (pediatric); E78.5 Hyperlipidemia, unspecified; D63.8 Anemia in other chronic diseases classified elsewhere; E66.9 Obesity, unspecified; Z95.5 Presence of coronary angioplasty implant and graft; Z82.49 Family history of ischemic heart disease and other diseases of the circulatory system; Z79.899 Other long term (current) drug therapy; Z79.82 Long term (current) use of aspirin; Z68.36 Body mass index [BMI] 36.0-36.9, adult; Z71.3 Dietary counseling and surveillance; Z85.46 Personal history of malignant neoplasm of prostate; I25.2 Old myocardial infarction; Z90.79 Acquired absence of other genital organ(s)
CPT/HCPCS: 33967; 36415; 71045; 71275; 80048; 80053; 80061; 82550; 82553; 83735; 83880; 84484; 85007; 85014; 85018; 85025; 85049; 85347; 85520; 85610; 85730; 92921; 92941; 93005; 93010; 93306; 93454; 94760; 96361; 96374; 96375; G0378; A9270-GY; C1725; C1769; C1876; C1887; C1894; J0171; J0461; J1265; J1644; J1940; J2001; J2250; J2270; J2370; J2405; J3010; J3246; J7030; J7040; J7050; Q9967